=== PATIENT | female | born 1970 | race Caucasian/White ===

== ENCOUNTER 2019-03-22 12:49 | Emergency (ER) | payer OTHER ==
--- NOTE | 2019-03-22 12:52 | PDOC ---
History of Present Illness - General Stated Complaint: SYNCOPY Time Seen by Provider: 03/22/19 12:51 - History of Present Illness Initial Comments: 03/22/19 15:44 48F with pmh of HTN and Graves diseases presents to the ed with episode of dizziness and tremulousness while walking from her car to her kitchen today. She describes the dizziness as lightheadedness. Denies chest pain, sob or palpitation. Was recently diagnosed with Graves disease by thyroid intake. Was supposed to get scheduled for thyroid irradiation procedure but is unsure why that hasn't happened yet. Daughter reports a significant weight loss over the past month. Is currently on metoprolol and losartan. 03/22/19 15:49 Past History - Past Medical History Allergies/Adverse Reactions: Allergies Allergy/AdvReac Type Severity Reaction Status Date / Time No Known Drug Allergies Allergy Verified 12/17/14 09:52 Home Medications: Ambulatory Orders Losartan Potassium 50 mg PO DAILY 03/22/19 Metoprolol Succinate [Toprol Xl] 25 mg PO DAILY 03/22/19 Anemia: No Asthma: No Cancer: No Cardiac Disorders: No CVA: No COPD: No CHF: No Dementia: No Diabetes: No GI Disorders: No Disorders: No HTN: Yes Hypercholesterolemia: No Liver Disease: No Seizures: No Thyroid Disease: No - Surgical History Abdominal Surgery: No Appendectomy: No Cardiac Surgery: No Cholecystectomy: No Lung Surgery: No Neurologic Surgery: No Orthopedic Surgery: No - Suicide/Smoking/Psychosocial Hx Smoking History: Never smoked Have you smoked in the past 12 months: No Hx Alcohol Use: No Drug/Substance Use Hx: No Substance Use Type: None Hx Substance Use Treatment: No Review of Systems - Review of Systems Able to Perform ROS?: Yes Is the patient limited [place] African proficient: No Constitutional: No: Symptoms Reported HEENTM: No: Symptoms Reported Respiratory: No: Symptoms reported Cardiac (ROS): No: Symptoms Reported ABD/GI: No: Symptoms Reported : No: Symptoms Reported Neurological: Yes: See HPI Endocrine: Yes: See HPI, Unexplained Weight Loss All Other Systems: Reviewed and Negative ED Treatment Course - LABORATORY CBC & Chemistry Diagram: 03/22/19 14:08 03/22/19 14:08 Medical Decision Making - Medical Decision Making 03/22/19 15:49 This is likely untreated hyperthyroidism symptoms vs dehydration vs hypoglycemia vs cardiac arrhythmia EKG within normal limit, patient is tachycardic Low TSH, t3 t4 pending Spoke to Dr. Medina who will see the patient on Sunday in his office and who will order methimazole and propanolol for her at the pharmacy ,. Dr. Medina came over to see the patient himself. Ok to dc. *DC/Admit/Observation/Transfer Diagnosis at time of Disposition: Hyperthyroidism - Discharge Dispostion Disposition: HOME Condition at time of disposition: Improved Decision to Admit order: No - Referrals - Patient Instructions Printed Discharge Instructions: DI for Hyperthyroidism, DI for Graves Disease Additional Instructions: Follow up with Dr. Medina on Sunday and pickling solution maker the medication from the pharmacy. Come back to the emergency department for any new worsening or concerning symptoms Print Language: VIETNAMESE - Post Discharge Activity
[2019-03-22 13:13] VITALS: TEMP 98.4; BMI 25.4
[2019-03-22] MEDS ORDERED: SODIUM CHLORIDE 1,000 ML IV STA (13:50)
--- NOTE | 2019-03-22 14:31 | PDOC ---
Attending Attestation - Resident Resident Name: HastingsBuzz - ED Attending Attestation I have performed the following: I have examined & evaluated the patient, The case was reviewed & discussed with the resident, I agree w/resident's findings & plan, Exceptions are as noted - HPI HPI: 03/22/19 14:26 48 yo F wtih h/o recently diagnosed hyperthyroid noted initially with abnormal TSH in 01/14, who was found to have increased uptake on nuclear thyroid test 2018. here today c/o palpitations, racing heart beat, and feeling dizzy. pt denfrancy n/v no f/c states she was supposed to start iodine treatment but have had a difficult time setting up treatment. every time they call center they get disconnected. no other complaints - Physicial Exam PE: 03/22/19 14:30 awake alert lungs clear bilaterally heart rrr no mrg abd soft nt nd. ext wwp no edema. no calf tenderness. nuero alert oriented x 3. - Medical Decision Making 03/22/19 14:28 48 yo F wtih h/o recently diagnosed hyperthyroid noted initially with abnormal TSH in 01/14, who was found to have increased uptake on nuclear thyroid test 2018. here today c/o palpitations, racing heart beat, and feeling dizzy. pt denfrancy n/v no f/c states she was supposed to start iodine treatment but have had a difficult time setting up treatment. every time they call center they get disconnected. no other complaints. on exam pt with noted tachycardia. otherwise unremarkable. exam. plan will send TSH basic labs. r/o other causes of tachycardia such as electrolyte abnoramlity dehydration anemia, . plan to d/w dr schaeffer. dr zuniga. Heart Score/ECG Review #1 General ECG Interpretation: Sinus Rhythm, Normal Intervals, No acute ischemic changes Compared to previous ECG there are: Other (103 tachycardia sinus)
[2019-03-22 15:00] LABS: BASO % 0.2 % (0-2.0); EOS % 0.3 % (0-4.5); HEMATOCRIT 37.8 % (32.4-45.2); HEMOGLOBIN 12.7 GM/dL (10.7-15.3); LYMPH % 26.9 % (8-40); MCH 28.1 pg (25.7-33.7); MCHC 33.6 g/dl (32.0-36.0); MEAN CELL VOLUME 83.6 fl (80-96); MEAN PLT VOLUME 9.1 fl (7.5-11.1); MONO % 7.2 % (3.8-10.2); NEUT % 65.4 % (42.8-82.8); PLATELET COUNT 248 K/MM3 (134-434); RBC 4.52 M/mm3 (3.60-5.2); RDW 13.3 % (11.6-15.6); WHITE BLOOD COUNT 4.7 K/mm3 (4.0-10.0)
--- NOTE | 2019-03-22 15:00 | EKG ---
Test Reason : Blood Pressure : / mmHG Vent. Rate : 103 BPM Atrial Rate : 103 BPM P-R Int : 150 ms QRS Dur : 084 ms QT Int : 340 ms P-R-T Axes : 053 027 041 degrees QTc Int : 445 ms POOR DATA QUALITY, INTERPRETATION MAY BE ADVERSELY AFFECTED SINUS TACHYCARDIA OTHERWISE NORMAL ECG NO PREVIOUS ECGS AVAILABLE Confirmed by KENDAL PLAZA MD ([id number]) on 03/22/2019 3:00:24 PM Referred By: Confirmed By:KENDAL PLAZA MD
[2019-03-22 15:11] LABS: URINE APPEARANCE CLEAR; URINE BILIRUBIN NEGATIVE (NEGATIVE); URINE COLOR YELLOW; URINE GLUCOSE (UA) NEGATIVE (NEGATIVE); URINE KETONE NEGATIVE (NEGATIVE); URINE LEUK ESTERASE NEGATIVE (NEGATIVE); URINE NITRITE NEGATIVE (NEGATIVE); URINE PROTEIN NEGATIVE (NEGATIVE); URINE UROBILINOGEN 0.2 mg/dL (0.2-1.0)
[2019-03-22 15:12] LABS: ALBUMIN 3.8 g/dl (3.4-5.0); ALK PHOS 127 U/L (45-117); ANION GAP 5 MMOL/L (8-16); BILIRUBIN,TOTAL 0.4 mg/dL (0.2-1); BLOOD UREA NITROGEN 9 mg/dL (7-18); CHLORIDE 109 mmol/L (98-107); CO2 28 mmol/L (21-32); CREATININE 0.3 mg/dL (0.55-1.3); GLUCOSE,RANDOM 93 mg/dL (74-106); POTASSIUM 4.1 mmol/L (3.5-5.1); SGOT/AST 15 U/L (15-37); SGPT/ALT 29 U/L (13-61); SODIUM 141 mmol/L (136-145); TOT PROT 7.6 g/dl (6.4-8.2)
--- NOTE | 2019-03-22 16:03 | CONSULT ---
Consult Consult Specialty:: endocrine Referred by:: dr.sayegh mathew Reason for Consultation:: hyperthyroidism - History of Present Illness Chief Complaint: palpitations History of Present Illness: 48 yo F wtih h/o recently diagnosed hyperthyroid TSH in 01/14, who was treated with beta marc and recent i123 scan done showed uptatke 76%,awaiting i131 therapy. has had difficulty making apt with nuclear medicine dept.today woke up anxious,restless and palpitation,no cp no cough fever or chills - Past Medical History ...LMP: 02/12/14 - Alcohol/Substance Use Hx Alcohol Use: No - Smoking History Smoking history: Never smoked Have you smoked in the past 12 months: No Home Medications - Allergies Allergies/Adverse Reactions: Allergies Allergy/AdvReac Type Severity Reaction Status Date / Time No Known Drug Allergies Allergy Verified 12/17/14 09:52 - Home Medications Home Medications: Ambulatory Orders Losartan Potassium 50 mg PO DAILY 03/22/19 Metoprolol Succinate [Toprol Xl] 25 mg PO DAILY 03/22/19 Review of Systems - Review of Systems Constitutional: reports: Unintentional Wgt. Loss Eyes: reports: No Symptoms HENT: reports: No Symptoms Neck: reports: No Symptoms Cardiovascular: reports: Palpitations Respiratory: reports: No Symptoms Gastrointestinal: reports: No Symptoms Genitourinary: reports: No Symptoms Breasts: reports: No Symptoms Reported Musculoskeletal: reports: Muscle Weakness Endocrine: reports: Unexplained Weight Loss Physical Exam Vital Signs: Vital Signs Temperature 98.4 F 03/22/19 12:49 Pulse Rate 106 H 03/22/19 12:49 Respiratory Rate 18 03/22/19 12:49 Blood Pressure 143/84 03/22/19 12:49 O2 Sat by Pulse Oximetry (%) 100 03/22/19 12:49 Constitutional: Yes: Anxious Eyes: Yes: EOM Intact HENT: Yes: Normocephalic Neck: Yes: WNL Cardiovascular: Yes: Tachycardia Respiratory: Yes: WNL Gastrointestinal: Yes: WNL ...Rectal Exam: Yes: WNL Renal/: Yes: WNL Breast(s): Yes: WNL Musculoskeletal: Yes: WNL Extremities: Yes: WNL Edema: No Neurological: Yes: Alert, Oriented, Tremors ...Motor Strength: WNL Psychiatric: Yes: Alert, Oriented Labs: CBC, BMP 03/22/19 14:08 03/22/19 14:08 Problem List - Problems (1) Hyperthyroidism Code(s): E05.90 - THYROTOXICOSIS, UNSP WITHOUT THYROTOXIC CRISIS OR STORM Assessment/Plan Current Active Problems Hyperthyroidism (Acute) Abnormal Lab Results 03/22/19 03/22/19 14:08 15:00 Chloride 109 H Anion Gap 5 L Creatinine 0.3 L Alkaline Phosphatase 127 H TSH 0.01 L Ur Specific [place] 1.006 L plan: inderal 20mg tid methimazole 10mg bid apt sunday for follow up close to apt for i131 family and pt aware seen urgently
[2019-03-22 16:38] VITALS: BP 137/76; PULSE 101
== END 2019-03-22 16:45 | disposition home or self-care (01) ==
LOC: JER 12:49
PROC: 3E0337Z Introduction of Electrolytic and Water Balance Substance into Peripheral Vein, Percutaneous Approach (ICD-10-PCS; principal; 2019-03-22)
DX: E05.90 Thyrotoxicosis, unspecified without thyrotoxic crisis or storm (principal); I10 Essential (primary) hypertension
CPT/HCPCS: 36415; 80053; 81003; 84436; 84439; 84443; 84480; 85025; 87086; 93005; 93010; 96360; 99282-25; J7030

== ENCOUNTER 2019-03-31 11:34 | Emergency (ER) | payer OTHER ==
[2019-03-31 11:40] VITALS: BP 161/71; PULSE 77; TEMP 98.2; BMI 25.1
--- NOTE | 2019-03-31 11:55 | PDOC ---
History of Present Illness - General Chief Complaint: Syncope/Near Syncope Stated Complaint: LIGHTHEADEAD Time Seen by Provider: 03/31/19 11:54 - History of Present Illness Initial Comments: 03/31/19 12:31 The patient is a 48 year old female with a history of HTN and recently diagnosed Hyperthyroidism who presents for evaluation of lightheadedness. The patient is accompanied by family who assist in providing the history. They report a several day history of persistent lightheadedness and dizziness with associated nausea, palpitations, and numbness/tingling in the extremities worse with walking prompting the patient's presentation to the ED for further evaluation. They note that the patient is scheduled for iodine ablation of the thyroid tomorrow, but noted that the patient was hypertensive today and yesterday to 170s systolic. They otherwise deny fevers, chills, SOB, chest pain , vomiting, abdominal pain, or changes with urination or bowel movements. Past History - Past Medical History Allergies/Adverse Reactions: Allergies Allergy/AdvReac Type Severity Reaction Status Date / Time No Known Drug Allergies Allergy Verified 03/31/19 11:35 Home Medications: Ambulatory Orders Losartan Potassium 50 mg PO DAILY 03/22/19 Metoprolol Succinate [Toprol Xl] 25 mg PO DAILY 03/22/19 Anemia: No Asthma: No Cancer: No Cardiac Disorders: No CVA: No COPD: No CHF: No Dementia: No Diabetes: No GI Disorders: No Disorders: No HTN: Yes Hypercholesterolemia: No Liver Disease: No Seizures: No Thyroid Disease: No - Surgical History Abdominal Surgery: No Appendectomy: No Cardiac Surgery: No Cholecystectomy: No Lung Surgery: No Neurologic Surgery: No Orthopedic Surgery: No - Immunization History Immunization Up to Date: Yes - Suicide/Smoking/Psychosocial Hx Smoking History: Never smoked Have you smoked in the past 12 months: No Information on smoking cessation initiated: No Hx Alcohol Use: No Drug/Substance Use Hx: No Substance Use Type: None Hx Substance Use Treatment: No Review of Systems - Review of Systems Comments:: 03/31/19 12:34 Constitutional: No fevers, chills, fatigue, malaise HEENT: No Rhinorrhea, nasal congestion, visual changes Cardiovascular: Palpitations, Lightheadedness. No chest pain, syncope, Respiratory: No Cough, SOB, Hemoptysis, Gastrointestinal: Nausea, No Abdominal pain, Vomiting, Constipation, Diarrhea, Melena Genitourinary: No Dysuria, Frequency, Urgency, Hesitancy, Hematuria, Flank pain Musculoskeletal: No Myalgia, arthralgia Skin: No rashes, itching, bruising, pallor Neurologic: Numbness, tingling. No Headache, Weakness, Psychiatric: No Hallucinations. No SI or HI *Physical Exam - Vital Signs Last Vital Signs Temp Pulse Resp BP Pulse Ox 98.2 F 77 17 161/71 99 03/31/19 11:36 03/31/19 11:36 03/31/19 11:36 03/31/19 11:36 03/31/19 11:36 - Physical Exam Comments: 03/31/19 12:35 General Appearance: Nourished. No Apparent Distress HEENT: EOMI, ILIA. No Pharyngeal Erythema, Tonsillar Exudate, Tonsillar Erythema Neck: No Cervical Lymphadenopathy Respiratory/Chest: Lungs Clear, Normal Breath Sounds. No Crackles, Rales, Rhonchi, Wheezing Cardiovascular: Regular Rhythm, Regular Rate. No Murmur, Gallops, Rubs Gastrointestinal/Abdominal: Normal Bowel Sounds, Soft. No Guarding, Rebound, Tenderness Musculoskeletal: No CVA Tenderness Extremity: Normal Capillary Refill Integumentary: Normal Color, Dry, Warm Neurologic: care coordination manager II-XII NML intact, Fully Oriented, Alert, Normal Mood/Affect, Normal Response, Motor Strength 5/5. Heart Score/ECG Review #1 ECG reviewed & interpreted by me at: 12:57 General ECG Interpretation: Sinus Rhythm, Normal Rate, Normal Intervals, No acute ischemic changes ED Treatment Course - LABORATORY CBC & Chemistry Diagram: 03/31/19 12:15 03/31/19 12:15 Medical Decision Making - Medical Decision Making 03/31/19 12:36 The patient is a 48 year old female with a history of HTN and recently diagnosed Hyperthyroidism who presents for evaluation of lightheadedness. Differential includes but is not limited to: Hyperthyroidism, Dehydration, ACS, Infectious, Metabolic Derangement. Given the patient's history and physical exam, it is likely the patient's symptoms are due to hyperthyroidism. However, we will obtain a cbc, cmp, troponin, tsh, T4, ekg, chest plain film to evaluate further. The patient notes that she takes propranolol at home and took her home medications today. We will continue to monitor and reassess while here in the ED. 03/31/19 13:57 CBC , cmp are unremarkable. TSH is low at 0.01. T4 is elevated to 2. Chest plain film is unremarkable. The patient's symptoms are likely related to her hyperthyroidism for which she has follow up for radioactive iodine ablation scheduled tomorrow. The patient was reassessed and appears clinically well on exam. We are comfortable discharging the patient home in stable condition. Patient and family made aware of impression and plan, return precautions discussed including but not limited to worsening pain or symptoms, fevers, or signs of infection, chest pain, respiratory distress, inability to tolerate oral intake, dehydration, syncope, or neurologic changes. The patient is to follow up with PMD and specialist as recommended within 1 week, follow up information provided and the patient will call for an appointment. The patient is to take medications as instructed for duration of time and continue with supportive care, avoid triggers and precipitants. Patient is safe for outpatient follow-up. *DC/Admit/Observation/Transfer Diagnosis at time of Disposition: Hyperthyroidism - Discharge Dispostion Disposition: HOME Condition at time of disposition: Stable Decision to Admit order: No - Referrals Referrals: Steven Rendon MD [Primary Care Provider] - - Patient Instructions Printed Discharge Instructions: DI for Hyperthyroidism Additional Instructions: 1) Please follow-up with your primary care doctor in the next 2-3 days. Please call tomorrow to schedule a follow up appointment. If you cannot follow up with your doctor within 1 week please return to the Emergency Department for any urgent issues. 2) Your laboratory / imaging results were normal here in the ER. You are to follow up tomorrow for your procedure. 3) If you have any worsening of symptoms or any other concerns please return to the ER immediately. Return if worsening symptoms including fevers, headache, vomiting, visual or hearing disturbances, abdominal pain, chest pain, shortness of breath, syncope, dehydration, inability to take things by mouth/vomiting, altered mental status, or worsening concerning symptoms. 4) Please continue taking your home medications as directed. - Post Discharge Activity
[2019-03-31] MEDS ORDERED: ONDANSETRON 4 MG/2 ML VIAL IVPUSH ONE (12:20)
[2019-03-31] MEDS ORDERED: SODIUM CHLORIDE 1,000 ML IV STA (12:20)
[2019-03-31] MEDS ORDERED: ONDANSETRON 4 MG/2 ML VIAL ONE (12:32)
[2019-03-31 13:08] LABS: BASO % 0.4 % (0-2.0); HEMATOCRIT 35.9 % (32.4-45.2); LYMPH % 41.6 % (8-40); MCH 27.6 pg (25.7-33.7); MCHC 33.4 g/dl (32.0-36.0); MEAN CELL VOLUME 82.5 fl (80-96); MEAN PLT VOLUME 8.9 fl (7.5-11.1); MONO % 6.7 % (3.8-10.2); NEUT % 50.3 % (42.8-82.8); PLATELET COUNT 295 K/MM3 (134-434); RBC 4.35 M/mm3 (3.60-5.2); RDW 13.3 % (11.6-15.6); WHITE BLOOD COUNT 3.7 K/mm3 (4.0-10.0)
[2019-03-31 13:24] LABS: ALBUMIN 3.4 g/dl (3.4-5.0); ALK PHOS 125 U/L (45-117); ANION GAP 6 MMOL/L (8-16); BILIRUBIN,TOTAL 0.2 mg/dL (0.2-1); BLOOD UREA NITROGEN 11 mg/dL (7-18); CALCIUM 9.3 mg/dL (8.5-10.1); CHLORIDE 109 mmol/L (98-107); CO2 26 mmol/L (21-32); CREATININE 0.4 mg/dL (0.55-1.3); GLUCOSE,RANDOM 117 mg/dL (74-106); SGOT/AST 18 U/L (15-37); SGPT/ALT 28 U/L (13-61); SODIUM 141 mmol/L (136-145)
--- NOTE | 2019-03-31 14:06 | PDOC ---
Documentation entered by Jde Escobar SCRIBE, acting as scribe for Yuniel Caldwell MD. Yuniel Caldwell MD: This documentation has been prepared by the Shawn allen Matthew, SCRIBE, under my direction and personally reviewed by me in its entirety. I confirm that the documentation accurately reflects all work, treatment, procedures, and medical decision making performed by me. Attending Attestation - Resident Resident Name: Alejandro Goode - ED Attending Attestation I have performed the following: I have examined & evaluated the patient, The case was reviewed & discussed with the resident, I agree w/resident's findings & plan, Exceptions are as noted - HPI HPI: 03/31/19 13:53 Patient is a 48 year old female with a significant past medical history of HTN and Hypothyroidism, who presents to the ED with complaints of lightheadedness that began earlier this week. Patient reports experiencing several day hx of lightheadedness as well as associated dizziness, nausea, numbness and tingling in extremities and intermittent chest palpitations. She reports symptoms are increased with walking and not while at rest, prompting her to come into the ED for further evaluations. . Denies Chest pain, sob. Denies vomiting. Denies fevers, chills. Denies contact with sick individuals, out of state travelling. Denies diarrhea, constipation. Denies dysuria, hematuria. Denies any other symptoms. Allergies: NKDA Social history: No smoking. No alcohol. No illicit drugs. Surgical history: None PMD: Dr. Steven zuniga - Physicial Exam PE: 03/31/19 13:53 Vitals: Triage Vital signs reviewed General Appearance: no acute distress, well nourished well developed Head: Atraumatic Neck: Supple; No Nuchal rigidity Chest Wall: Nontender Cardiac: Regular rate and rhythm, no murmurs, no rubs, no gallops Lungs: Clear to auscultation bilateral, good air movement bilaterally Abdomen: Soft, non distended, normal bowel sounds, non tender to palpation Genitourinary: Rectal: Exam deferred Extremities: Full range of motion to all extremities, no cyanosis, clubbing, or edema Skin: Warm and dry, no rashes or lesions, no rash, no petechiae Neuro: AOX3; Cranial Nerves 2-12 grossly intact, Strength intact to all extremities, Sensation intact to all extremities, gait normal Psych: Normal mood, normal affect 03/31/19 15:34 - Medical Decision Making 03/31/19 15:34 Positional lightheadedness nonischemic EKG EKG demonstrates normal sinus rhythm at [address] elevations or T-wave inversions Laboratory analysis within normal limits Findings, need for follow-up and strict return instructions discussed with patient.
--- NOTE | 2019-03-31 15:09 | EKG ---
Test Reason : Blood Pressure : / mmHG Vent. Rate : 070 BPM Atrial Rate : 070 BPM P-R Int : 146 ms QRS Dur : 082 ms QT Int : 406 ms P-R-T Axes : 047 031 059 degrees QTc Int : 438 ms NORMAL SINUS RHYTHM NORMAL ECG WHEN COMPARED WITH ECG OF 22-MAR-2019 12:54, NO SIGNIFICANT CHANGE WAS FOUND Confirmed by IZZY QUINN MD ([id number]) on 03/31/2019 3:08:48 PM Referred By: Confirmed By:IZZY QUINN MD
== END 2019-03-31 14:55 | disposition home or self-care (01) ==
LOC: JER 11:34
PROC: 3E033GC Introduction of Other Therapeutic Substance into Peripheral Vein, Percutaneous Approach (ICD-10-PCS; principal; 2019-03-31)
DX: E05.90 Thyrotoxicosis, unspecified without thyrotoxic crisis or storm (principal); I10 Essential (primary) hypertension
CPT/HCPCS: 36415; 71045-TC-FY; 80053; 82550; 84439; 84443; 84481; 84484; 85025; 93005; 93010; 96374; 99283-25; J7030

== ENCOUNTER 2019-04-03 13:55 | Emergency (ER) | payer OTHER ==
[2019-04-03 14:05] VITALS: TEMP 98.1; BMI 25.1
--- NOTE | 2019-04-03 14:08 | PDOC ---
Rapid Medical Evaluation Chief Complaint: Lightheaded Time Seen by Provider: 04/03/19 14:03 Medical Evaluation: Allergies Allergy/AdvReac Type Severity Reaction Status Date / Time No Known Drug Allergies Allergy Verified 03/31/19 11:35 04/03/19 14:04 I have performed a brief in-person evaluation of this patient. The patient presents with a chief complaint of: h/o hyperthyroidism and HTN undergoing radiation therapy for 3 days now present with complains of MURPHY, nausea dizziness and elevated blood pressure with visual floaters today Pertinent physical exam findings: A&o X 3 in NAD. HEART : RRR. lungs: CTAB I have ordered the following: CBC, CMP, t3,t4, TSH. The patient will proceed to the ED for further evaluation. Discharge Disposition - Diagnosis Hyperthyroidism, Dizziness HTN (hypertension) Qualifiers: Hypertension type: secondary to endocrine disorders Qualified Code(s): I15.2 - Hypertension secondary to endocrine disorders - Discharge Dispostion Condition at time of disposition: Stable - Referrals - Patient Instructions - Post Discharge Activity
[2019-04-03] MEDS ORDERED: LOSARTAN POTASSIUM 50 MG TABLET (FP) PO ONE (14:39)
[2019-04-03] MEDS ORDERED: LOSARTAN POTASSIUM 50 MG TABLET (FP) ONE (15:25)
[2019-04-03] MEDS ORDERED: IBUPROFEN 600 MG TABLET (FP) PO ONE (15:25)
[2019-04-03 15:36] LABS: BASO % 0.3 % (0-2.0); EOS % 1.2 % (0-4.5); HEMATOCRIT 38.9 % (32.4-45.2); HEMOGLOBIN 12.7 GM/dL (10.7-15.3); LYMPH % 30.6 % (8-40); MCH 27.3 pg (25.7-33.7); MCHC 32.6 g/dl (32.0-36.0); MEAN CELL VOLUME 83.8 fl (80-96); MEAN PLT VOLUME 8.6 fl (7.5-11.1); MONO % 6.4 % (3.8-10.2); NEUT % 61.5 % (42.8-82.8); PLATELET COUNT 305 K/MM3 (134-434); RBC 4.64 M/mm3 (3.60-5.2); RDW 13.3 % (11.6-15.6); WHITE BLOOD COUNT 5.4 K/mm3 (4.0-10.0)
[2019-04-03 16:19] LABS: ALBUMIN 3.8 g/dl (3.4-5.0); BILIRUBIN,TOTAL 0.3 mg/dL (0.2-1); CALCIUM 9.7 mg/dL (8.5-10.1); CREATININE 0.4 mg/dL (0.55-1.3); TOT PROT 7.3 g/dl (6.4-8.2)
--- NOTE | 2019-04-03 16:45 | PDOC ---
Documentation entered by April Weems SCRIBE, acting as scribe for Bill Pace MD. Bill Pace MD: This documentation has been prepared by the Faustina allen Amanda, SCRIBE, under my direction and personally reviewed by me in its entirety. I confirm that the documentation accurately reflects all work, treatment, procedures, and medical decision making performed by me. Attending Attestation - Resident Resident Name: Chris España - ED Attending Attestation I have performed the following: I have examined & evaluated the patient, The case was reviewed & discussed with the resident, I agree w/resident's findings & plan - HPI HPI: 04/03/19 16:35 The patient is a 48 year old female with a significant past medical history of HTN and Hyperthyroidism, who presents to the ED with complaints of headache, light headedness, blurred vision, and flashing lights this morning. Two days s/ p thyroid ablation with Dr. Rodrigues. She states she took her BP during the episode which was 200s "over something". Of note, pt losartan was d/c'd few weeks ago. She denies Chest pain, SOB, n/v/d. She denies fevers, chills. She denies dysuria , hematuria. Denies any other symptoms. Allergies: NKDA Social history: No smoking. No alcohol. No illicit drugs. Surgical history: None PMD: Dr. Steven zuniga Endo: Dr. Medina - Physicial Exam PE: 04/03/19 16:38 alert seated in wheelchair, nad speaking full sentences, coherent perrl, eomi neck supple, no audible carotid bruit s1s2 rrr, lungs clear, abd benign NEURO: Mental status: The patient is alert and oriented x3. Cranial nerves: Cranial nerves II through XII are intact Motor: The upper extremities are 5 over 5 in all muscle groups. The lower extremities are 5 over 5 in all muscle groups. No pronator drift. Sensation: Sensation is intact to light touch throughout. Cerebellar: [id number] is normal in both upper extremities. Heel-knee- gupta is normal in both lower extremities. Reflexes: 2+ and symmetric in the upper and lower extremities. Gait: Normal. Heel and toe walking are normal. Tandem gait is normal. - Medical Decision Making 04/03/19 16:44 48y/o F HTN and hyperthyroid recent change in BP meds with murphy/blurry vision in setting of elevated BP at home. neuro intact here but BP persistently elevated on arrival. check labs ct head likely htn urgency, given losartan with improved BP tylenol for MURPHY thyroid levels as noted - will discuss dispo with Dr. Medina 04/03/19 17:03 bp 120/69, CT without acute pathology call placed to Dr. Medina, will dispo accordingly Heart Score/ECG Review #1 ECG reviewed & interpreted by me at: 15:27 General ECG Interpretation: Sinus Rhythm, Normal Rate (77), Normal Intervals ( qtc 427), No acute ischemic changes
[2019-04-03 16:47] VITALS: BP 120/69; PULSE 71
--- NOTE | 2019-04-03 16:59 | PDOC ---
History of Present Illness - General Chief Complaint: Lightheaded Stated Complaint: DIZZNESS/ HYPERTENSION Time Seen by Provider: 04/03/19 14:03 History Source: Patient, Family (Daughter present at bedside.), Old Records Exam Limitations: No Limitations - History of Present Illness Initial Comments: HPI: 48 y/o female presenting to [facility] ER complaining of headache, black spots in vision, and elevated blood pressure (over 200 systolic at home). Black spots are present with eyes open and closed. Pt is s/p radioactive thyroid administration two days ago for Graves Disease. Stopped taking Losartan three weeks ago but has continued Propranolol. Was instructed to restart Methimazole tomorrow. Denies chest pain, SOB, syncope, numbness or weakness. PCP: Dr. Julieta Ambrocio Hx: - HTN - Graves Disease s/p radioactive iodine therapy (March 2019) Review of Systems: In addition to that documented in the HPI above, the additional ROS was obtained : Constitutional: Denies fevers or chills Head: Per HPI ENMT: Denies sore throat CV: Denies chest pain Resp: Denies SOB GI: Endorses nausea without vomiting or diarrhea : Denies painful urination or hematuria MSK: Denies recent trauma Skin: Denies new rashes Neuro: Denies new numbness or tingling or weakness Endocrine: Denies polyuria Heme: Denies bleeding or bruising Physical Examination: Constitutional: Well-developed, well-nourished adult in no acute distress or obvious discomfort. Found sitting upright on hallway chair. Alert and oriented x4. Answered all questions appropriately and completely. Speech was non-labored , non-pressured. Head: Normocephalic. No obvious external signs of trauma. Eyes: Pupils 3mm and PERRL bilaterally. EOMI. Sclerae white. Conjunctiva moist and not injected. Ears: Hearing grossly intact. Nose: No nasal discharge. Throat: Oral cavity and pharynx normal. No inflammation, swelling, exudate, or lesions. Teeth and gingiva in good general condition. Uvula midline. Neck: Supple, trachea is midline. Cardiovascular / Chest: Regular rate and regular rhythm. No murmur, rubs, clicks, or gallops. Peripheral pulses: radial pulses full. No anterior chest wall tenderness. Respiratory: Breathing unlabored. Equal chest rise and fall. Clear to auscultation bilaterally. No stridor, no wheezing, no rhonchi. Gastrointestinal: abdomen is soft, non-tender, non-distended. Neuro: Alert and oriented. Moving all four extremities spontaneously.Upper and lower extremities: proximal and distal strength 5/5. Adon strength 5/5 - equal and symmetric. Plantar flexion and dorsiflexion 5/5. No nuchal rigidity. Intact rapid alternating movements and heel to gupta. Skin: Warm, dry, and intact. No bruising, rashes, or other lesions. Psych: Affect: appropriate. Mood: normal. MDM: *Reviewed vital signs, nursing notes, and prior visit documentation (if available). 48 y/o female with h/o of Graves Disease s/p radioactive iodine two days ago. Recently stopped one antihypertensive agent. Presenting with headache, black spots in vision, and elevated BP. Suspect secondary to hyperthyroidism and elevated BP. EKG unremarkable for ischemic changes or arrhythmias. CBC unremarkable for anemia or leukocytosis. No significant electrolyte derangement. BP trended downward appropriately after receiving Losartan at home dose. Headache resolved after receiving Tylenol. Obtained Head CT to evaluate for intracranial lesion given the hypertension, visual changes, and nausea. No acute intracranial abnormalities were noted. Discussed low TSH and elevated T4 levels with Dr. Medina via telephone. Stated these levels take approx. 6 weeks to normalize. Requested the pt restart Methimazole and Losartan. Pt reassessed. States symptoms have resolved. Discussed imaging and laboratory results with pt. Answered all questions. Provided return precautions. Pt expressed verbal understanding and agreement with plan to discharge home with outpatient follow up. Provided copies of todays results. Past History - Past Medical History Allergies/Adverse Reactions: Allergies Allergy/AdvReac Type Severity Reaction Status Date / Time No Known Drug Allergies Allergy Verified 04/03/19 14:05 Home Medications: Ambulatory Orders Losartan Potassium 50 mg PO DAILY 03/22/19 Metoprolol Succinate [Toprol Xl] 25 mg PO DAILY 03/22/19 Anemia: No Asthma: No Cancer: No Cardiac Disorders: No CVA: No COPD: No CHF: No Dementia: No Diabetes: No GI Disorders: No Disorders: No HTN: Yes Hypercholesterolemia: No Liver Disease: No Seizures: No Thyroid Disease: Yes (HYPER) - Surgical History Abdominal Surgery: No Appendectomy: No Cardiac Surgery: No Cholecystectomy: No Lung Surgery: No Neurologic Surgery: No Orthopedic Surgery: No - Immunization History Immunization Up to Date: Yes - Suicide/Smoking/Psychosocial Hx Smoking History: Never smoked Have you smoked in the past 12 months: No Hx Alcohol Use: No Drug/Substance Use Hx: No Substance Use Type: None Hx Substance Use Treatment: No *Physical Exam - Vital Signs Last Vital Signs Temp Pulse Resp BP Pulse Ox 98.1 F 71 18 120/69 98 04/03/19 16:46 04/03/19 16:46 04/03/19 16:46 04/03/19 16:47 04/03/19 16:46 ED Treatment Course - LABORATORY CBC & Chemistry Diagram: 04/03/19 15:23 04/03/19 15:23 - ADDITIONAL ORDERS Additional order review: Laboratory Results 04/03/19 04/03/19 15:23 15:23 Sodium 139 Potassium 4.0 Chloride 108 H Carbon Dioxide 26 Anion Gap 5 L BUN 12 Creatinine 0.4 L Est GFR (CKD-EPI)AfAm 140.76 Est GFR (CKD-EPI)NonAf 121.45 Random Glucose 104 Calcium 9.7 Total Bilirubin 0.3 AST 12 L ALT 26 Alkaline Phosphatase 135 H Creatine Kinase 29 Troponin I < 0.02 Total Protein 7.3 Albumin 3.8 TSH 0.01 L Free T4 2.75 H 04/03/19 15:23 RBC 4.64 MCV 83.8 MCHC 32.6 RDW 13.3 MPV 8.6 Neutrophils % 61.5 D Lymphocytes % 30.6 D Monocytes % 6.4 Eosinophils % 1.2 Basophils % 0.3 - Medications Given in the ED: ED Medications Discontinued Medications Generic Name Dose Route Start Last Admin Trade Name Raghuq PRN Reason Stop Dose Admin Ibuprofen 650 mg 04/03/19 15:25 04/03/19 16:41 Motrin - PO 04/03/19 15:26 Not Given ONCE ONE Losartan Potassium 50 mg 04/03/19 14:39 04/03/19 15:27 Cozaar - PO 04/03/19 14:40 50 mg ONCE ONE Administration *DC/Admit/Observation/Transfer Diagnosis at time of Disposition: Hyperthyroidism, Dizziness HTN (hypertension) Qualifiers: Hypertension type: secondary to endocrine disorders Qualified Code(s): I15.2 - Hypertension secondary to endocrine disorders - Discharge Dispostion Disposition: HOME Condition at time of disposition: Stable Decision to Admit order: No - Referrals Referrals: Steven Rendon MD [Primary Care Provider] - - Patient Instructions Printed Discharge Instructions: DI for High Blood Pressure Additional Instructions: Hoy te vieron por un dolor de anne, mareos y presin arterial tomas. Pelayo TC de la anne era normal. Pelayo anlisis de osvaldo indic el problema conocido con pelayo tiroides. El Dr. Flynn desea que comience a michelle el metimazol hoy. [place] 1x 10mg esta noche, luego 2x 10mg maana por la maana y 1x 10mg maana por la noche. Vuelva a comenzar a michelle pelayo Losartan segn lo prescrito por pelayo mdico maana por la maana. Maegan un seguimiento con pelayo mdico de atencin primaria en los prximos 3 a 4 renee. Tendr que llamar para hacer omar milagro. El nmero est incluido en beto paquete. Omar copia de los resultados de hoy se adjunta a beto paquete. Llvelo a la milagro para que pelayo mdico pueda revisarlos. Vaya al departamento de emergencias ms cercano si pelayo afeccin empeora o si mary que necesita omar evaluacin de emergencia adicional. You were seen today for a headache, dizziness, and high blood pressure. Your head CT was normal. Your blood work indicated the known problem with your Thyroid. Dr. Flynn would like you to start taking the Methimazole today. Take 1x 10mg pill tonight, then 2x 10mg pill tomorrow morning and 1x 10mg pill tomorrow night. Restart taking your Losartan as prescribed by your doctor tomorrow morning. Follow up with your primary care doctor within the next 3-4 days. You will need to call to make an appointment. The number is included in this packet. A copy of todays results are attached to this packet. Take it to the appointment so your doctor can review them. Go to the nearest emergency department if your condition worsens or you feel like you need additional emergency evaluation. Print Language: TELUGU - Post Discharge Activity Forms/Work/School Notes: Back to Work, Parent(s) Back to Work Note
--- NOTE | 2019-04-04 15:01 | EKG ---
Test Reason : Blood Pressure : / mmHG Vent. Rate : 077 BPM Atrial Rate : 077 BPM P-R Int : 136 ms QRS Dur : 072 ms QT Int : 378 ms P-R-T Axes : 064 022 047 degrees QTc Int : 427 ms NORMAL SINUS RHYTHM NORMAL ECG WHEN COMPARED WITH ECG OF 31-MAR-2019 12:34, NO SIGNIFICANT CHANGE WAS FOUND Confirmed by J CARLOS VEGAS MD ([id number]) on 04/04/2019 3:01:05 PM Referred By: Confirmed By:J CARLOS VEGAS MD
== END 2019-04-03 18:08 | disposition home or self-care (01) ==
LOC: JER 13:55
DX: I15.2 Hypertension secondary to endocrine disorders (principal); E05.90 Thyrotoxicosis, unspecified without thyrotoxic crisis or storm; R42 Dizziness and giddiness
CPT/HCPCS: 36415; 70450-TC; 71045-TC-FY; 80053; 82550; 84439; 84443; 84481; 84484; 85025; 93005; 93010; 99283-25

== ENCOUNTER 2019-04-10 20:39 | Emergency (ER) | payer OTHER ==
[2019-04-10 20:49] VITALS: TEMP 98.1; BMI 25.1
--- NOTE | 2019-04-10 20:56 | PDOC ---
History of Present Illness - General Chief Complaint: Nausea/Vomiting Stated Complaint: WEAKNESS Time Seen by Provider: 04/10/19 20:56 History Source: Patient Exam Limitations: No Limitations - History of Present Illness Initial Comments: 04/10/19 20:57 48 year old woman with a history of HTN and Graves disease s/p radioactive iodine therapy (April 01, 2019) who presents with diffuse abdominal pain that started this am after eating, rated 9/10 and has been waxing and waning since onset and associated with some nausea and headache. The patient also noted some bright red blood on her stool and has a history of hemorrhoids. The patient denies any diaphoresis, chest pain, shortness of breath, dysuria, hematuria, diarrhea, recent fever or recent travel. The patient is managed by Dr. Medina for her hyperthyroidism and is on a regimen of methimazole, losartan, propranolol Q6H, however the patient has been taking these medications Q5H due to feelings of palpitations and shortness of breath. Last methamizole dose at 1700, last propranolol 2000. She had an appointment with her PCP this AM who told her to continue to monitor her BP and come to the ED if elevated. This AM the bp was 160s systolic. PMHX: cholecystectomy, R oophorectomy 2/2 to tumor Past History - Past Medical History Allergies/Adverse Reactions: Allergies Allergy/AdvReac Type Severity Reaction Status Date / Time No Known Drug Allergies Allergy Verified 04/10/19 20:49 Home Medications: Ambulatory Orders Losartan Potassium 50 mg PO DAILY 03/22/19 Metoprolol Succinate [Toprol Xl] 25 mg PO DAILY 03/22/19 Anemia: No Asthma: No Cancer: No Cardiac Disorders: No CVA: No COPD: No CHF: No Dementia: No Diabetes: No GI Disorders: No Disorders: No HTN: Yes Hypercholesterolemia: No Liver Disease: No Seizures: No Thyroid Disease: Yes (HYPER) - Surgical History Abdominal Surgery: No Appendectomy: No Cardiac Surgery: No Cholecystectomy: No Lung Surgery: No Neurologic Surgery: No Orthopedic Surgery: No - Immunization History Immunization Up to Date: Yes - Suicide/Smoking/Psychosocial Hx Smoking History: Never smoked Have you smoked in the past 12 months: No Information on smoking cessation initiated: No Hx Alcohol Use: No Drug/Substance Use Hx: No Substance Use Type: None Hx Substance Use Treatment: No Review of Systems - Review of Systems Able to Perform ROS?: Yes Comments:: 04/10/19 21:27 GENERAL/CONSTITUTIONAL: No fever or chills. No weakness. HEAD, EYES, EARS, NOSE AND THROAT: No change in vision. No ear pain or discharge. No sore throat. CARDIOVASCULAR: No chest pain + occasional intermittent shortness of breath RESPIRATORY: No cough, wheezing, or hemoptysis. GASTROINTESTINAL: + nausea, No vomiting, diarrhea or constipation. GENITOURINARY: No dysuria, frequency, or change in urination. MUSCULOSKELETAL: No joint or muscle swelling or pain. No neck or back pain. SKIN: No rash NEUROLOGIC: + headache, No vertigo, loss of consciousness, or change in strength /sensation. ENDOCRINE: No increased thirst. No abnormal weight change HEMATOLOGIC/LYMPHATIC: No anemia, easy bleeding, or history of blood clots. ALLERGIC/IMMUNOLOGIC: No hives or skin allergy. Is the patient limited Wolof proficient: No *Physical Exam - Vital Signs Last Vital Signs Temp Pulse Resp BP Pulse Ox 98.1 F 83 20 156/84 98 04/10/19 20:39 04/10/19 20:39 04/10/19 20:39 04/10/19 20:39 04/10/19 20:39 - Physical Exam Comments: 04/10/19 21:38 GENERAL: Awake, alert, and fully oriented, in no acute distress HEAD: No signs of trauma, normocephalic, atraumatic EYES: EOMI, sclera anicteric, conjunctiva clear ENT: oropharynx clear without exudates. Moist mucosa NECK: Normal ROM, supple LUNGS: No distress, speaks full sentences, clear to auscultation bilaterally HEART: Regular rate and rhythm, normal S1 and S2, no murmurs, rubs or gallops, peripheral pulses normal and equal bilaterally. ABDOMEN: Soft, nontender, normoactive bowel sounds. No guarding, no rebound. No masses EXTREMITIES : Normal inspection, Normal range of motion, no edema. No clubbing or cyanosis. NEUROLOGICAL: Cranial nerves II through XII grossly intact. Normal speech, normal gait, no focal sensorimotor deficits SKIN: Warm, Dry, normal turgor, no rashes or lesions noted ED Treatment Course - LABORATORY CBC & Chemistry Diagram: 04/10/19 21:20 04/10/19 21:20 Medical Decision Making - Medical Decision Making 04/10/19 21:26 48 year old woman with a history of HTN and Graves disease s/p radioactive iodine therapy (April 01, 2019) who presents with diffuse abdominal pain that started this am after eating, rated 9/10 and has been waxing and waning since onset and associated with some nausea and headache. The patient also noted some bright red blood on her stool and has a history of hemorrhoids. The patient denies any diaphoresis, chest pain, shortness of breath, dysuria, hematuria, diarrhea, recent fever or recent travel. The patient is managed by Dr. Medina for her hyperthyroidism and is on a regimen of methimazole, losartan, propranolol Q6H, however the patient has been taking these medications Q5H due to feelings of palpitations and shortness of breath. Last methamizole dose at 1700, last propranolol 1999. ED Course: consider acs vs arrythmia vs electrolyte derangement vs hyperthyroidism unremarkable abdominal exam, less likely appendicitis less likely retained gallstone unliekly pancreatitis cbc, cmp, ekg, tsh, free t3, free t4, trop, ua ivf, reglan 04/10/19 22:47 EKG: normal sinus rhythm HR 75, no interval abnormalities, narrow QRS, ST and T wave segments and morphology normal. cbc, cmp, trop wnl pending tsh 04/10/19 23:47 TSH unchanged pending free T3 and T4 ua unremarkable *DC/Admit/Observation/Transfer Diagnosis at time of Disposition: Nausea, Abdominal pain - Discharge Dispostion Condition at time of disposition: Fair Decision to Admit order: No - Referrals Referrals: Steven Rendon MD [Primary Care Provider] - - Patient Instructions Printed Discharge Instructions: DI for Nausea -- Adult, DI for Graves Disease, DI for Abdominal Pain-Adult Additional Instructions: You were seen in the ED for complaints of abdominal pain. In the ED you were evaluated with labwork. Your results were largely unremarkable and you showed symptomatic improvement. There does not appear to be an acute need for immediate hospitalization. You are advised to follow up with your Primary Care Physician within 1 week. Continue to take all your thyroid medications as prescribed. Return to the ED immediately if you experience worsening abdominal pain, nausea , fever, chest pain, chest palpitations, shortness of breath or any changes in mental status. - Post Discharge Activity
[2019-04-10] MEDS ORDERED: SODIUM CHLORIDE 1,000 ML IV SCH (21:00)
--- NOTE | 2019-04-10 21:08 | PDOC ---
Documentation entered by [employer] SCRIBE, acting as scribe for Hamilton Etienne MD. Hamilton Etienne MD: This documentation has been prepared by the Calos allen Daisy, SCRIBE, under my direction and personally reviewed by me in its entirety. I confirm that the documentation accurately reflects all work, treatment, procedures, and medical decision making performed by me. Attending Attestation - Resident Resident Name: Patricia Parra - ED Attending Attestation I have performed the following: I have examined & evaluated the patient, The case was reviewed & discussed with the resident, I agree w/resident's findings & plan - HPI HPI: 04/10/19 21:40 The patient is a 48YOF with a PMH of HTN and Graves disease (follows with Dr. Medina) s/p radioactive iodine therapy (April 01, 2019) who presents to the ER for diffuse abdominal pain with nausea and generalized headache. She also noticed bright red blood covering her stool this morning. She is currently on methimazole, losartan, and propranolol Q6H, but has been taking these medications every 5 hours due to intermittent palpitations. Denies any cp, urinary symptoms, diarrhea or constipation. Allergies: NKDA Surgeries: cholecystectomy, R oophorectomy 2/2 to tumor - Physicial Exam PE: 04/11/19 00:08 Agree with exam as documented by resident - Medical Decision Making 04/11/19 00:08 48F on day 11 of radioactive iodide tx for Grave's disease. Here complaining of nausea vomiting, nbnb. a/w intermittent palpitation concurrent with treatment. Benign abdomen, acute surgical pathology unlikely Consider electrolyte imbalance, arrythmia, sequelae of Grave's tx F/u labs tx symptoms re-eval dispo per clinical course EKG nsr, non-ischemic Labs unremarkable Pt endorses resolution of cheif complaint symptoms DC with f/u return instructions given
[2019-04-10] MEDS ORDERED: METOCLOPRAMIDE HCL INJECTION 10 MG/2 ML VIAL IVPUSH ONE (21:20)
[2019-04-10] MEDS ORDERED: METOCLOPRAMIDE HCL INJECTION 10 MG/2 ML VIAL ONE (21:33)
[2019-04-10 21:34] LABS: BASO % 0.5 % (0-2.0); EOS % 2.7 % (0-4.5); HEMATOCRIT 37.5 % (32.4-45.2); HEMOGLOBIN 12.3 GM/dL (10.7-15.3); LYMPH % 25.7 % (8-40); MCH 27.4 pg (25.7-33.7); MCHC 32.8 g/dl (32.0-36.0); MEAN CELL VOLUME 83.4 fl (80-96); MEAN PLT VOLUME 8.8 fl (7.5-11.1); MONO % 8.9 % (3.8-10.2); NEUT % 62.2 % (42.8-82.8); PLATELET COUNT 262 K/MM3 (134-434); RBC 4.49 M/mm3 (3.60-5.2); RDW 13.4 % (11.6-15.6); WHITE BLOOD COUNT 4.1 K/mm3 (4.0-10.0)
[2019-04-10 22:15] LABS: ALBUMIN 3.5 g/dl (3.4-5.0); ALK PHOS 133 U/L (45-117); ANION GAP 6 MMOL/L (8-16); BILIRUBIN,TOTAL 0.2 mg/dL (0.2-1); BLOOD UREA NITROGEN 11 mg/dL (7-18); CALCIUM 9.2 mg/dL (8.5-10.1); CHLORIDE 107 mmol/L (98-107); CO2 28 mmol/L (21-32); CREATININE 0.4 mg/dL (0.55-1.3); GLUCOSE,RANDOM 138 mg/dL (74-106); POTASSIUM 3.7 mmol/L (3.5-5.1); SGOT/AST 15 U/L (15-37); SGPT/ALT 26 U/L (13-61); SODIUM 140 mmol/L (136-145); TOT PROT 6.9 g/dl (6.4-8.2)
[2019-04-10 23:03] LABS: PH,URINE 7.5 (5.0-8.0); URINE APPEARANCE CLEAR; URINE BILIRUBIN NEGATIVE (NEGATIVE); URINE COLOR YELLOW; URINE GLUCOSE (UA) NEGATIVE (NEGATIVE); URINE KETONE NEGATIVE (NEGATIVE); URINE LEUK ESTERASE NEGATIVE (NEGATIVE); URINE NITRITE NEGATIVE (NEGATIVE); URINE PROTEIN NEGATIVE (NEGATIVE); URINE UROBILINOGEN 0.2 mg/dL (0.2-1.0)
[2019-04-11 00:20] VITALS: BP 120/66; PULSE 74
--- NOTE | 2019-04-11 14:37 | EKG ---
Test Reason : Blood Pressure : / mmHG Vent. Rate : 075 BPM Atrial Rate : 075 BPM P-R Int : 150 ms QRS Dur : 082 ms QT Int : 396 ms P-R-T Axes : 046 027 048 degrees QTc Int : 442 ms NORMAL SINUS RHYTHM NORMAL ECG WHEN COMPARED WITH ECG OF 03-APR-2019 15:27, NO SIGNIFICANT CHANGE WAS FOUND Confirmed by J CARLOS VEGAS MD ([id number]) on 04/11/2019 2:36:42 PM Referred By: Confirmed By:J CARLOS VEGAS MD
== END 2019-04-11 00:19 | disposition home or self-care (01) ==
LOC: JER 20:39
PROC: 3E033GC Introduction of Other Therapeutic Substance into Peripheral Vein, Percutaneous Approach (ICD-10-PCS; principal; 2019-04-10)
DX: R10.9 Unspecified abdominal pain (principal); R11.0 Nausea; I10 Essential (primary) hypertension; E05.90 Thyrotoxicosis, unspecified without thyrotoxic crisis or storm
CPT/HCPCS: 36415; 80053; 81003; 84439; 84443; 84480; 84481; 84484; 85025; 87086; 93005; 93010; 99284-25; J7030

== ENCOUNTER 2019-06-05 13:51 | Emergency (ER) | payer OTHER ==
[2019-06-05 13:59] VITALS: TEMP 98.1; BMI 25.6
--- NOTE | 2019-06-05 14:20 | PDOC ---
History of Present Illness - General Chief Complaint: Weakness Stated Complaint: numbness/ tingling to hands, feet Time Seen by Provider: 06/05/19 14:19 - History of Present Illness Initial Comments: 06/05/19 14:24 Source: The patient is accompanied by family who assist in providing the history. HPI: 48 year old woman with a history of HTN and Graves disease s/p radioactive iodine therapy (April 01, 2019) recently started on synthroid (06/02 50mcg, Dr. Medina) who presents after a transient episode of hypertention to 200/110 with tachycardia to 105 three hours ago. At that time she experienced "full body numbness," nausea, loss of visions (flashing lights only), and palpitations. Blood pressure and symptoms resolved over the next 15-20 minutes without intervention. Her BP is currently managed with losartan 50mg and has been in the 90s-100s systolic for several weeks. Over the past 2-3 days she has experienced sleepless nights 2/2 numbness and tingling, heat and cold intolerance, fatigue, and constipation. At the time of arrival, patient denies any fever, chills, diaphoresis, chest pain, shortness of breath, dysuria, hematuria, diarrhea. She reports that her symptoms have entirely resolved. Past History - Past Medical History Allergies/Adverse Reactions: Allergies Allergy/AdvReac Type Severity Reaction Status Date / Time No Known Drug Allergies Allergy Verified 06/05/19 13:59 Home Medications: Ambulatory Orders Losartan Potassium 50 mg PO DAILY 03/22/19 Anemia: No Asthma: No Cancer: No Cardiac Disorders: No CVA: No COPD: No CHF: No Dementia: No Diabetes: No GI Disorders: No Disorders: No HTN: Yes Hypercholesterolemia: No Liver Disease: No Seizures: No Thyroid Disease: Yes - Surgical History Abdominal Surgery: No Appendectomy: No Cardiac Surgery: No Cholecystectomy: No Lung Surgery: No Neurologic Surgery: No Orthopedic Surgery: No - Immunization History Immunization Up to Date: Yes - Suicide/Smoking/Psychosocial Hx Smoking History: Never smoked Have you smoked in the past 12 months: No Hx Alcohol Use: No Drug/Substance Use Hx: No Substance Use Type: None Hx Substance Use Treatment: No Review of Systems - Review of Systems Able to Perform ROS?: Yes Is the patient limited Danish proficient: Yes Constitutional: No: Symptoms Reported HEENTM: No: Symptoms Reported Respiratory: No: Symptoms reported Cardiac (ROS): No: Symptoms Reported ABD/GI: No: Symptoms Reported : No: Symptoms Reported Musculoskeletal: No: Symptoms Reported Integumentary: No: Symptoms Reported All Other Systems: Reviewed and Negative *Physical Exam - Vital Signs Last Vital Signs Temp Pulse Resp BP Pulse Ox 98.1 F 70 18 133/85 100 06/05/19 13:57 06/05/19 13:57 06/05/19 13:57 06/05/19 13:57 06/05/19 14:00 - Physical Exam Comments: 06/05/19 15:12 Vitals reviewed, AFVSS Gen: WDWN woman, appears stated age, relaxed in bed HEENT: Normal morphologies, EOMI, PERLLA, neck soft and nontender - no evidence of goiter CV: RRR, nl s1/s2, no murmurs rubs or gallops Pulm: CTABL, normal work of breathing, no wheezes rales or rhonchi Abd: Soft, nontender, nondistended Ext: Warm and well perfused, no clubbing cyanosis or edema Pulses: 2+ PT and radial pulses Neuro: Cranial nerves 2-12 intact, 5+ construction safety manager strength / UE / LE, normal sensation throughout ED Treatment Course - LABORATORY CBC & Chemistry Diagram: 06/05/19 15:10 06/05/19 15:10 Medical Decision Making - Medical Decision Making 06/05/19 15:06 48 year old woman with a history of HTN and Graves disease s/p radioactive iodine therapy (April 01, 2019) recently started on synthroid (06/02 50mcg, Dr. Medina) who presents after a transient episode of hypertention to 200/110 with tachycardia to 105 three hours ago. Reassuring for spontaneous resolution without intervention - patient education; suggested second 50mg dose of Losartan in symptomatic hypertension at home as per endocrine recommendation. Physical exam unremarkable, no focal neurologic findings, vital signs stable in the department. Concern regarding thyroid hormone levels 2/2 history of several days of sx of hyperthyroidism in setting of new synthroid RX - however, this would not explain the sudden onset / resolution of her symptoms. Pt is well appearing in the ED and will likely be discharged with close PCP followup if labs are normal and remains stable. DDX: consider hyperthyroidism in setting of synthroid use vs electrolyte derangement vs anxiety / panic attack. r/o acs in 48 yo woman with n/v arm numbness and tingling. Current menopause could play a role in temperature swings / unclear temp intolerance. - CBC, CMP, Troponin - EKG 06/05/19 16:14 - CBC, CMP, Troponin wnl - TSH / T3 / T4 were run, abnormal in an anticipated pattern - Patient remains clinically well, HDS, without symptoms - Plan for discharge home *DC/Admit/Observation/Transfer Diagnosis at time of Disposition: HTN (hypertension) - Discharge Dispostion Disposition: HOME Condition at time of disposition: Good Decision to Admit order: No - Referrals Referrals: Steven Rendon MD [Primary Care Provider] - - Patient Instructions Printed Discharge Instructions: DI for Malignant Hypertension Additional Instructions: 1) Please follow-up with your primary care doctor and Hris Developer in the next week. Please call tomorrow to schedule a follow up appointment. If you cannot follow up with your doctor within 1 week please return to the Emergency Department for any urgent issues. 2) Your laboratory results were normal here in the ER. 3) If you have any worsening of symptoms or any other concerns please return to the ER immediately. Return if worsening symptoms including fevers, headache, vomiting, visual or hearing disturbances, abdominal pain, chest pain, shortness of breath, syncope, dehydration, inability to take things by mouth/vomiting, altered mental status, or worsening concerning symptoms. 4) Please continue taking your home medications as directed. - Post Discharge Activity
[2019-06-05 15:32] LABS: BASO % 0.5 % (0-2.0); EOS % 1.6 % (0-4.5); HEMATOCRIT 37.9 % (32.4-45.2); HEMOGLOBIN 12.7 GM/dL (10.7-15.3); LYMPH % 18.4 % (8-40); MCH 28.8 pg (25.7-33.7); MCHC 33.6 g/dl (32.0-36.0); MEAN CELL VOLUME 85.7 fl (80-96); MEAN PLT VOLUME 7.8 fl (7.5-11.1); MONO % 3.7 % (3.8-10.2); NEUT % 75.8 % (42.8-82.8); RBC 4.42 M/mm3 (3.60-5.2); RDW 16.2 % (11.6-15.6); WHITE BLOOD COUNT 6.5 K/mm3 (4.0-10.0)
[2019-06-05 15:44] LABS: PLATELET COUNT 279 K/MM3 (134-434)
[2019-06-05 15:57] LABS: BILIRUBIN,TOTAL 0.3 mg/dL (0.2-1); BLOOD UREA NITROGEN 11.3 mg/dL (7-18); CALCIUM 9.1 mg/dL (8.5-10.1); CREATININE 0.7 mg/dL (0.55-1.3); POTASSIUM 3.9 mmol/L (3.5-5.1); TOT PROT 7.4 g/dl (6.4-8.2)
--- NOTE | 2019-06-05 16:21 | PDOC ---
Documentation entered by Alejandro Gordon SCRIBE, acting as scribe for Curry Mcclellan MD. Curry Mcclellan MD: This documentation has been prepared by the Evan allen Daniel, SCRIBE, under my direction and personally reviewed by me in its entirety. I confirm that the documentation accurately reflects all work, treatment, procedures, and medical decision making performed by me. Attending Attestation - Resident Resident Name: WidlerLuis M - ED Attending Attestation I have performed the following: I have examined & evaluated the patient, The case was reviewed & discussed with the resident, I agree w/resident's findings & plan, Exceptions are as noted - HPI HPI: 06/05/19 15:31 The patient is a 48 year old female with a past medical history of Graves disease s/p ablation here today for evaluation of elevated blood pressure. The patient reports that around noon today she was feeling unwell, with lightheadedness, blurry vision, and generalized weakness. She took her blood pressure and found it to be 200/110. Pt states that her BP gradually improved on its own, and after about 15 minutes, her BP was back to baseline. All of her symptoms resolved spontaneously as well. Pt currently has no complaints. Pt notes she is taking losartan 40mg daily. Has not missed any doses. She was also started on synthroid 3 days ago. Allergies: NKDA PCP: Steven Rendon Monotypist: Erasto Medina - Physicial Exam PE: 06/05/19 16:20 "GENERAL: Awake, alert, and fully oriented, in no acute distress. HEAD: No signs of trauma EYES: PERRLA, EOMI, sclera anicteric, conjunctiva clear ENT: Auricles normal inspection, hearing grossly normal, nares patent, oropharynx clear without exudates. Moist mucosa NECK: Nontender, no stepoffs, Normal ROM, supple, no lymphadenopathy, JVD, or masses LUNGS: Breath sounds equal, clear to auscultation bilaterally. No wheezes, and no crackles HEART: Regular rate and rhythm, normal S1 and S2, no murmurs, rubs or gallops ABDOMEN: Soft, nontender, normoactive bowel sounds. No guarding, no rebound. No masses EXTREMITIES: Normal range of motion, no edema. No clubbing or cyanosis. No cords, erythema, or tenderness NEUROLOGICAL: Cranial nerves II through XII intact. 5/5 strength and sensation in all extremities, Normal speech, normal gait, normal cerebellar function SKIN: Warm, Dry, normal turgor, no rashes or lesions noted. - Medical Decision Making 06/05/19 16:20 48 F with transient hypertension associated with lightheadedness, blurry vision , and weakness, all now resolved. Pt with normal vitals in ED. - Labs wnl, trop negative - EKG nonischemic Pt is well appearing, with normal vitals. Clinically stable for DC at this time. I discussed the physical exam findings, ancillary test results and final diagnoses with the patient. I answered all of the patient's questions. The patient was satisfied with the care received and felt comfortable with the discharge plan and treatment plan. The patient agrees to follow up with the primary care physician within 24-72 hours.
[2019-06-05 16:31] VITALS: BP 139/74; PULSE 72
--- NOTE | 2019-06-05 17:01 | EKG ---
Test Reason : Blood Pressure : / mmHG Vent. Rate : 064 BPM Atrial Rate : 064 BPM P-R Int : 152 ms QRS Dur : 086 ms QT Int : 394 ms P-R-T Axes : 039 021 037 degrees QTc Int : 406 ms POOR DATA QUALITY, INTERPRETATION MAY BE ADVERSELY AFFECTED NORMAL SINUS RHYTHM NORMAL ECG WHEN COMPARED WITH ECG OF 10-APR-2019 22:34, NONSPECIFIC T WAVE ABNORMALITY NOW EVIDENT IN ANTERIOR LEADS Confirmed by SUNNI GONZALEZ, MODE ([id number]) on 06/05/2019 5:00:56 PM Referred By: Confirmed By:MODE MOELLER MD
== END 2019-06-05 16:30 | disposition home or self-care (01) ==
LOC: JER 13:51
DX: I10 Essential (primary) hypertension (principal); E05.00 Thyrotoxicosis with diffuse goiter without thyrotoxic crisis or storm
CPT/HCPCS: 36415; 80053; 84439; 84443; 84481; 84484; 85025; 93005; 93010; 99283-25

== ENCOUNTER 2019-06-05 19:10 | Emergency (ER) | payer OTHER ==
--- NOTE | 2019-06-05 19:16 | PDOC ---
Rapid Medical Evaluation Time Seen by Provider: 06/05/19 19:12 Medical Evaluation: Allergies Allergy/AdvReac Type Severity Reaction Status Date / Time No Known Drug Allergies Allergy Verified 06/05/19 13:59 06/05/19 19:14 I have performed a brief in-person evaluation of this patient. The patient presents with a chief complaint of: chest pain and SOB. Pt evaluated earlier in this ER. Symptoms started upon arrival at home s/p discharge Pertinent physical exam findings: tachypneic. otherwise unremarkable. I have ordered the following: ekg The patient will proceed to the ED for further evaluation. Discharge Disposition - Diagnosis SOB (shortness of breath) - Referrals Referrals: Steven Rendon MD [Primary Care Provider] - - Patient Instructions - Post Discharge Activity
[2019-06-05 19:21] VITALS: BMI 25.6
--- NOTE | 2019-06-05 21:08 | PDOC ---
Documentation entered by Payal Mulligan SCRIBE, acting as scribe for Haley Sanchez MD. Haley Sanchez MD: This documentation has been prepared by the Ese allen Xhesika, SCRIBE, under my direction and personally reviewed by me in its entirety. I confirm that the documentation accurately reflects all work, treatment, procedures, and medical decision making performed by me. Attending Attestation - Resident Resident Name: Ciro Billy - ED Attending Attestation I have performed the following: I have examined & evaluated the patient, The case was reviewed & discussed with the resident, I agree w/resident's findings & plan - HPI HPI: 06/05/19 21:06 48 year old woman with a history of HTN and Graves disease s/p radioactive iodine therapy (April 01, 2019) recently started on synthroid (06/02 50mcg, Dr. Medina) who presents with various complaints. after getting home this evening , she was taking PO when, she developed frontal-temporal headache, dyspnea, sweats, nausea, anterior chest pressure /nonradiating. she took her 6pm dose of losartan, extra dose. she noted her blood pressure to be elevated, SBP 180s with the symptoms. denies stressors. no recent illnesses. no dietary or salty intake. no particular triggers, exacerbating or alleviating factors. seen earlier today in the ED here for HTN 200/110 with tachycardia, dc'd home with neg workup - earlier she had nausea, total body numbness, photosensitivity and flashing lights, palpitations, which was worse this afternoon currently no symptoms, no mendiola/ dizziness, cp or sob. recently started on synthroid about 4 days ago for her hypothyroid state 06/05/19 22:07 06/05/19 22:09 - Physicial Exam PE: 06/05/19 21:08 Agree with the resident's HPI and PE as documented in the electronic medical record. NAD, well appearing, EOMI, PERRL, nl conjunctiva, anicteric; neck supple. lungs clear, RRR, no murmur, abdomen soft nontender. Back nontender. VELASQUEZ x4, no focal neuro deficits. No peripheral edema. normal color for ethnicity, WWP. speech clear. 5/5 fashion director strength. 5/5 prox and distal strength, SILT in all extrem. gait stable, no ataxia. 06/05/19 22:10 - Medical Decision Making 06/05/19 22:10 See HPI for details. Prior notes reviewed, including admissions, discharges and consultations. Vital signs reviewed, wnl. hypertensive initially, downtrended. DDX hypertension, urgency/emergency, electrolyte/metabolic derangements laboratory results and imaging reviewed, basic labs and lytes wnl, CXR_clear, no acute chest pathology Cardiac panel_neg trop x1, needs second 3hr trop rule out. EKG normal sinus rhythm at 79 bpm, no interval abnormalities, narrow QRS, ST and T wave segments and morphology normal. Nonspecific T wave abnormalities - unchanged ED course -interventions: - tele no events, no symptoms, HD appropriate, BP much improved to BP 140/80s - heart score 3, low risk for MACE at 4-6 weeks 2 trops, ekg repeat and reassess, trop neg, EKG unchanged can f/u outpatient with PMD for bp med adjustment, avoid stressors, diet and exercise modifications, risk factor modification. Pt to be discharged in stable condition. Patient and family made aware of clinical impression, treatment recommendations and disposition plan, return precautions discussed (including but not limited to new or persistent/worsening symptoms, pain, fevers, or signs of infection, chest pain, respiratory distress , inability to tolerate oral intake, dehydration, syncope, or neurologic changes ). Follow up with PMD and/or cards specialist as recommended, follow up information provided, take medications as instructed for duration of time. continue with supportive care, avoid triggers and precipitants. All questions answered to patient's satisfaction and expressed understanding and comfort with this. At the time of discharge, the patient is alert, clinically improved, tolerating po and verbalizes understanding of instructions, satisfied with the care received and felt comfortable with the plan. Patient does not suffer from an acute life-threatening medical condition at this time and is safe for outpatient follow-up. 06/05/19 22:41 06/05/19 22:42 06/06/19 02:09 06/06/19 02:10 Heart Score/ECG Review - History History: Slightly suspicious - Electrocardiogram EKG: Non specific repolarization disturbance - Age Age: 45-65 - Risk Factors Risk Factors Heart Score: Yes Hx Hypertension Based on the list above the patient has:: 1-2 risk factors - Troponin Troponin: </= normal limit - Score Heart Score - Total: 3 #1 ECG reviewed & interpreted by me at: 19:05 General ECG Interpretation: Sinus Rhythm, Normal Rate, Normal Intervals Compared to previous ECG there are: No significant change 06/05/19 22:42 EKG normal sinus rhythm at 79 bpm, no interval abnormalities, narrow QRS, ST and T wave segments and morphology normal. Nonspecific T wave abnormalities - unchanged
--- NOTE | 2019-06-05 21:16 | PDOC ---
History of Present Illness - History of Present Illness Initial Comments: Ms. Sethi is a 48F with PMH of HTN and Graves' disease presenting this evening for high blood pressure reading at home (178/90), abdominal discomfort, frontal headache, shortness of breath, nausea, and diaphoresis. She was seen here earlier today for similar symptoms, though she states that it was not as bad this afternoon. Describes having hot and cold flashes and sensitivity to light. She took her Losartan 50 mg once in the morning and once in the afternoon. Denies chest pain. <Ciro Billy - Last Filed: 06/06/19 01:46> <Haley Sanchez - Last Filed: 06/06/19 02:11> - General Chief Complaint: Shortness of Breath Stated Complaint: DIFF BREATHING Time Seen by Provider: 06/05/19 19:12 Past History - Past Medical History Anemia: No Asthma: No Cancer: No Cardiac Disorders: No CVA: No COPD: No CHF: No Dementia: No Diabetes: No GI Disorders: No Disorders: No HTN: Yes Hypercholesterolemia: No Liver Disease: No Seizures: No Thyroid Disease: Yes - Surgical History Abdominal Surgery: No Appendectomy: No Cardiac Surgery: No Cholecystectomy: No Lung Surgery: No Neurologic Surgery: No Orthopedic Surgery: No - Immunization History Immunization Up to Date: Yes - Suicide/Smoking/Psychosocial Hx Smoking History: Never smoked Have you smoked in the past 12 months: No Hx Alcohol Use: No Drug/Substance Use Hx: No Substance Use Type: None Hx Substance Use Treatment: No <Ciro Billy - Last Filed: 06/06/19 01:46> <Haley Sanchez - Last Filed: 06/06/19 02:11> - Past Medical History Allergies/Adverse Reactions: Allergies Allergy/AdvReac Type Severity Reaction Status Date / Time No Known Drug Allergies Allergy Verified 06/05/19 19:18 Home Medications: Ambulatory Orders Losartan Potassium 50 mg PO DAILY 03/22/19 Levothyroxine [Synthroid -] 50 mcg PO DAILY 06/05/19 Review of Systems - Review of Systems Able to Perform ROS?: Yes Is the patient limited Latvian proficient: No Constitutional: Yes: See HPI, Diaphoresis, Loss of Appetite. No: Chills, Fever , Weakness HEENTM: Yes: See HPI. No: Eye Pain, Nose Pain, Nose Bleeding, Hearing Loss, Throat Pain Respiratory: Yes: See HPI, Shortness of Breath. No: Cough, Orthopnea, Stridor, Wheezing Cardiac (ROS): Yes: See HPI. No: Chest Pain, Edema, Lightheadedness, Palpitations, Syncope, Chest Tightness ABD/GI: Yes: See HPI, Nausea. No: Abdominal Distended, Vomiting : Yes: See HPI. No: Burning, Dysuria Musculoskeletal: Yes: See HPI. No: Back Pain, Joint Pain, Muscle Pain Integumentary: Yes: See HPI. No: Bruising, Rash Neurological: Yes: See HPI, Headache. No: Seizure, Tremors, Unsteady Gait Endocrine: Yes: Symptoms Reported, See HPI, Flushing, Intolerance to Cold, Intolerance to Heat <Ciro Billy - Last Filed: 06/06/19 01:46> *Physical Exam - Vital Signs Last Vital Signs Temp Pulse Resp BP Pulse Ox 98 F 69 18 133/82 95 06/05/19 19:30 06/05/19 19:30 06/05/19 19:30 06/05/19 19:30 06/05/19 19:30 - Physical Exam General Appearance: Yes: Appropriately Dressed. No: Apparent Distress HEENT: positive: EOMI, ILIA, Normal ENT Inspection, Normal Voice, Symmetrical, Pharynx Normal Neck: positive: Trachea midline, Supple. negative: Tender, Rigid Respiratory/Chest: positive: Lungs Clear, Normal Breath Sounds, Respiratory Distress. negative: Chest Tender, Accessory Muscle Use Cardiovascular: positive: Regular Rhythm, Regular Rate Vascular Pulses: Dorsalis-Pedis (R): 2+, Doralis-Pedis (L): 2+ Gastrointestinal/Abdominal: positive: Tender (mild, RUQ ), Flat, Soft. negative : Organomegaly, Pulsatile Mass, Guarding, Rebound Musculoskeletal: positive: Normal Inspection. negative: CVA Tenderness Extremity: positive: Normal Capillary Refill, Normal Inspection, Normal Range of Motion. negative: Tender Integumentary: positive: Normal Color, Dry, Warm Neurologic: positive: program director air talent II-XII NML intact, Fully Oriented, Alert, Normal Mood/ Affect, Normal Response, Motor Strength 5/5 <Ciro Billy - Last Filed: 06/06/19 01:46> - Vital Signs Last Vital Signs Temp Pulse Resp BP Pulse Ox 98 F 68 19 114/87 98 06/06/19 01:24 06/06/19 01:24 06/06/19 01:24 06/06/19 01:24 06/06/19 01:24 <Haley Sanchez - Last Filed: 06/06/19 02:11> ED Treatment Course - LABORATORY CBC & Chemistry Diagram: 06/05/19 21:50 06/05/19 21:50 <Ciro Billy - Last Filed: 06/06/19 01:46> - LABORATORY CBC & Chemistry Diagram: 06/05/19 21:50 06/05/19 21:50 - ADDITIONAL ORDERS Additional order review: Laboratory Results 06/06/19 06/05/19 01:14 21:50 Sodium 141 Potassium 4.0 Chloride 108 H Carbon Dioxide 28 Anion Gap 6 L BUN 11.8 Creatinine 0.8 Est GFR (CKD-EPI)AfAm 99.63 Est GFR (CKD-EPI)NonAf 85.96 Random Glucose 115 H Calcium 9.4 Total Bilirubin 0.3 AST 20 ALT 38 Alkaline Phosphatase 142 H Troponin I < 0.02 < 0.02 Total Protein 7.6 Albumin 4.2 06/05/19 21:50 RBC 4.43 MCV 85.9 MCHC 34.0 RDW 15.9 H MPV 7.7 Neutrophils % 75.3 Lymphocytes % 20.0 Monocytes % 3.6 L Eosinophils % 0.6 Basophils % 0.5 - RADIOLOGY Radiology Studies Ordered: Category Date Time Status CHEST X-RAY PORTABLE* [RAD] Stat Radiology 06/05/19 21:09 Taken - Medications Given in the ED: ED Medications Discontinued Medications Generic Name Dose Route Start Last Admin Trade Name Freq PRN Reason Stop Dose Admin Acetaminophen 975 mg 06/05/19 21:38 06/05/19 21:59 Tylenol - PO 06/05/19 21:39 975 mg ONCE ONE Administration <Haley Sanchez - Last Filed: 06/06/19 02:11> Medical Decision Making - Medical Decision Making 06/05/19 2100 48F with PMH of HTN of Graves' disease and HTN presenting for recurrence of high blood pressure, diaphoresis, shortness of breath, headache, and mild stomach ache. Denies chest pain. She has hot and cold flashes which may be related to her thyroid condition, as she recently went from being hyperthyroid to hypothyroid after her treatment for Graves disease. Seen here earlier today with a troponin wnl. Will repeat troponin x2. Will obtain CXR, CBC, CMP. EKG shows NSR 75 bpm, no axis deviation, no ST elevation/depression, QTc 433 ms. 06/05/2019 2150 First troponin within normal limits 06/06/19 0030 Patient reassessed - no shortness of breath, headache improved. Mild abdominal pain associated with PO intake. Will redraw troponin labs and if normal plan to discharge home and follow up with PCP and drama teacher. Patient signed out to Dr. Crooks. <Ciro Billy - Last Filed: 06/06/19 01:46> *DC/Admit/Observation/Transfer <Ciro Billy - Last Filed: 06/06/19 01:46> <Haley Sanchez - Last Filed: 06/06/19 02:11> Diagnosis at time of Disposition: Hypertension, Chest pain - Discharge Dispostion Disposition: HOME Condition at time of disposition: Good - Referrals Referrals: Erasto Medina MD [Staff Physician] - Steven Rendon MD [Primary Care Provider] - - Patient Instructions Printed Discharge Instructions: DI for Chest Pain, Essential Hypertension Additional Instructions: You were seen in the emergency room today for your blood pressure elevation, shortness of breath and chest pain/headache Your blood tests were all normal. I highly recommend you make an appointment with your doctor about your thyroid. Take your medications as directed. Come back to the emergency room if your blood pressure is over 200/100, if you have chest pain, if you have difficulty breathing, if your heart rate is fast, if you have changes in vision or if any new concerning symptom develops. Thank you - Post Discharge Activity
[2019-06-05] MEDS ORDERED: ACETAMINOPHEN 500 MG TABLET (FP) PO ONE (21:38)
[2019-06-05] MEDS ORDERED: ACETAMINOPHEN 325 MG TABLET (FP) ONE (21:52)
[2019-06-05 21:54] LABS: BASO % 0.5 % (0-2.0); EOS % 0.6 % (0-4.5); HEMATOCRIT 38.1 % (32.4-45.2); HEMOGLOBIN 12.9 GM/dL (10.7-15.3); MCH 29.2 pg (25.7-33.7); MEAN CELL VOLUME 85.9 fl (80-96); MEAN PLT VOLUME 7.7 fl (7.5-11.1); MONO % 3.6 % (3.8-10.2); NEUT % 75.3 % (42.8-82.8); PLATELET COUNT 271 K/MM3 (134-434); RBC 4.43 M/mm3 (3.60-5.2); RDW 15.9 % (11.6-15.6); WHITE BLOOD COUNT 7.8 K/mm3 (4.0-10.0)
[2019-06-05 22:14] LABS: ALBUMIN 4.2 g/dl (3.4-5.0); ALK PHOS 142 U/L (45-117); ANION GAP 6 MMOL/L (8-16); BILIRUBIN,TOTAL 0.3 mg/dL (0.2-1); BLOOD UREA NITROGEN 11.8 mg/dL (7-18); CALCIUM 9.4 mg/dL (8.5-10.1); CHLORIDE 108 mmol/L (98-107); CO2 28 mmol/L (21-32); CREATININE 0.8 mg/dL (0.55-1.3); GLUCOSE,RANDOM 115 mg/dL (74-106); SGOT/AST 20 U/L (15-37); SGPT/ALT 38 U/L (13-61); SODIUM 141 mmol/L (136-145); TOT PROT 7.6 g/dl (6.4-8.2)
--- NOTE | 2019-06-06 01:12 | PDOC ---
*Physical Exam - Vital Signs Last Vital Signs Temp Pulse Resp BP Pulse Ox 97.9 F 76 18 141/88 98 06/05/19 22:57 06/05/19 22:57 06/05/19 19:30 06/05/19 22:57 06/05/19 22:57 - Physical Exam Comments: 06/06/19 01:46 pt resting comfortably in bed <Vonda Crooks - Last Filed: 06/06/19 01:51> - Vital Signs Last Vital Signs Temp Pulse Resp BP Pulse Ox 98 F 68 19 114/87 98 06/06/19 01:24 06/06/19 01:24 06/06/19 01:24 06/06/19 01:24 06/06/19 01:24 <Haley Sanchez - Last Filed: 06/06/19 02:11> ED Treatment Course - LABORATORY CBC & Chemistry Diagram: 06/05/19 21:50 06/05/19 21:50 - ADDITIONAL ORDERS Additional order review: Laboratory Results 06/05/19 21:50 Sodium 141 Potassium 4.0 Chloride 108 H Carbon Dioxide 28 Anion Gap 6 L BUN 11.8 Creatinine 0.8 Est GFR (CKD-EPI)AfAm 99.63 Est GFR (CKD-EPI)NonAf 85.96 Random Glucose 115 H Calcium 9.4 Total Bilirubin 0.3 AST 20 ALT 38 Alkaline Phosphatase 142 H Troponin I < 0.02 Total Protein 7.6 Albumin 4.2 06/05/19 21:50 RBC 4.43 MCV 85.9 MCHC 34.0 RDW 15.9 H MPV 7.7 Neutrophils % 75.3 Lymphocytes % 20.0 Monocytes % 3.6 L Eosinophils % 0.6 Basophils % 0.5 - Medications Given in the ED: ED Medications Discontinued Medications Generic Name Dose Route Start Last Admin Trade Name Freq PRN Reason Stop Dose Admin Acetaminophen 975 mg 06/05/19 21:38 06/05/19 21:59 Tylenol - PO 06/05/19 21:39 975 mg ONCE ONE Administration <Vonda Crooks - Last Filed: 06/06/19 01:51> - LABORATORY CBC & Chemistry Diagram: 06/05/19 21:50 06/05/19 21:50 - ADDITIONAL ORDERS Additional order review: Laboratory Results 07/12/19 07/11/19 01:14 21:50 Sodium 141 Potassium 4.0 Chloride 108 H Carbon Dioxide 28 Anion Gap 6 L BUN 11.8 Creatinine 0.8 Est GFR (CKD-EPI)AfAm 99.63 Est GFR (CKD-EPI)NonAf 85.96 Random Glucose 115 H Calcium 9.4 Total Bilirubin 0.3 AST 20 ALT 38 Alkaline Phosphatase 142 H Troponin I < 0.02 < 0.02 Total Protein 7.6 Albumin 4.2 06/05/19 21:50 RBC 4.43 MCV 85.9 MCHC 34.0 RDW 15.9 H MPV 7.7 Neutrophils % 75.3 Lymphocytes % 20.0 Monocytes % 3.6 L Eosinophils % 0.6 Basophils % 0.5 - RADIOLOGY Radiology Studies Ordered: Category Date Time Status CHEST X-RAY PORTABLE* [RAD] Stat Radiology 06/05/19 21:09 Taken - Medications Given in the ED: ED Medications Discontinued Medications Generic Name Dose Route Start Last Admin Trade Name Freq PRN Reason Stop Dose Admin Acetaminophen 975 mg 06/05/19 21:38 06/05/19 21:59 Tylenol - PO 06/05/19 21:39 975 mg ONCE ONE Administration <Haley Sanchez - Last Filed: 06/06/19 02:11> Medical Decision Making - Medical Decision Making 06/06/19 01:[address] Billy 48yo F with PMH of HTN and Graves disease s/p radioactive iodine therapy (March) recently started on synthroid (06/02 50mcg, Dr. Medina) who presents with frontal-temporal headache, dyspnea, sweats, nausea, anterior chest pressure /nonradiating. she took her 6pm dose of losartan, extra dose. she noted her blood pressure to be elevated, SBP 180s with the symptoms. seen earlier today in the ED here for HTN 200/110 with tachycardia, dc'd home with neg workup - earlier she had nausea, total body numbness, photosensitivity and flashing lights, palpitations, which was worse this afternoon currently no symptoms, no mendiola/ dizziness, cp or sob. recently started on synthroid about 4 days ago for her hypothyroid state labs wnl. ekg nsr, no acute changes from earlier. pending second trop second ekg: nsr. similar to prior upon evaluating pt, she was resting comfortably in stretcher, stating she is feeling fine. pending second troponin. if normal can be dc home. <Vonda Crooks - Last Filed: 06/06/19 01:51> *DC/Admit/Observation/Transfer - Discharge Dispostion Decision to Admit order: No <Vonda Crooks - Last Filed: 06/06/19 01:51> <Haley Sanchez - Last Filed: 06/06/19 02:11> Diagnosis at time of Disposition: Hypertension, Chest pain - Discharge Dispostion Disposition: HOME Condition at time of disposition: Good - Referrals Referrals: Steven Rendon MD [Primary Care Provider] - Erasto Medina MD [Staff Physician] - - Patient Instructions Printed Discharge Instructions: Essential Hypertension, DI for Chest Pain Additional Instructions: You were seen in the emergency room today for your blood pressure elevation, shortness of breath and chest pain/headache Your blood tests were all normal. I highly recommend you make an appointment with your doctor about your thyroid. Take your medications as directed. Come back to the emergency room if your blood pressure is over 200/100, if you have chest pain, if you have difficulty breathing, if your heart rate is fast, if you have changes in vision or if any new concerning symptom develops. Thank you - Post Discharge Activity
[2019-06-06 02:21] VITALS: BP 126/79; PULSE 59; TEMP 97.9
--- NOTE | 2019-06-06 13:31 | EKG ---
Test Reason : Blood Pressure : / mmHG Vent. Rate : 056 BPM Atrial Rate : 056 BPM P-R Int : 160 ms QRS Dur : 090 ms QT Int : 440 ms P-R-T Axes : 051 035 055 degrees QTc Int : 424 ms SINUS BRADYCARDIA WHEN COMPARED WITH ECG OF 05-JUN-2019 14:19, NO SIGNIFICANT CHANGE WAS FOUND Confirmed by J CARLOS VEGAS MD ([id number]) on 06/06/2019 1:30:35 PM Referred By: Confirmed By:J CARLOS VEGAS MD
--- NOTE | 2019-06-07 08:15 | EKG ---
Test Reason : Blood Pressure : / mmHG Vent. Rate : 079 BPM Atrial Rate : 079 BPM P-R Int : 140 ms QRS Dur : 088 ms QT Int : 378 ms P-R-T Axes : 052 020 027 degrees QTc Int : 433 ms NORMAL SINUS RHYTHM WITH SINUS ARRHYTHMIA NONSPECIFIC ST ABNORMALITY ABNORMAL ECG WHEN COMPARED WITH ECG OF 05-JUN-2019 14:19, NONSPECIFIC T WAVE ABNORMALITY, IMPROVED IN ANTERIOR LEADS Confirmed by KIMBERLY GONZALEZ, AGA ([id number]) on 06/07/2019 8:15:08 AM Referred By: Confirmed By:AGA HARRIS MD
== END 2019-06-06 02:53 | disposition home or self-care (01) ==
LOC: JER 19:10
DX: I10 Essential (primary) hypertension (principal); E05.00 Thyrotoxicosis with diffuse goiter without thyrotoxic crisis or storm
CPT/HCPCS: 36415; 71045-TC-FY; 80053; 84484; 85025; 93005; 93010; 99285-25

== ENCOUNTER 2019-06-06 12:23 | Emergency (ER) | payer OTHER ==
--- NOTE | 2019-06-06 12:32 | PDOC ---
Rapid Medical Evaluation Time Seen by Provider: 06/06/19 12:32 Medical Evaluation: Allergies Allergy/AdvReac Type Severity Reaction Status Date / Time No Known Drug Allergies Allergy Verified 06/05/19 19:18 06/06/19 12:32 I have performed a brief in-person evaluation of this patient. The patient presents with a chief complaint of: dizziness and nausea Pertinent physical exam findings: No focal deficits I have ordered the following: labs, ekg, urine The patient will proceed to the ED for further evaluation. Discharge Disposition - Diagnosis Dizziness - Referrals - Patient Instructions - Post Discharge Activity
[2019-06-06 12:39] VITALS: TEMP 98.1; BMI 65.3
[2019-06-06 13:34] LABS: EOS % 0.7 % (0-4.5); HEMATOCRIT 39.7 % (32.4-45.2); HEMOGLOBIN 13.4 GM/dL (10.7-15.3); LYMPH % 26.9 % (8-40); MCH 29.3 pg (25.7-33.7); MCHC 33.6 g/dl (32.0-36.0); MEAN CELL VOLUME 87.2 fl (80-96); MONO % 3.7 % (3.8-10.2); NEUT % 67.7 % (42.8-82.8); PLATELET COUNT 264 K/MM3 (134-434); RBC 4.56 M/mm3 (3.60-5.2); RDW 16.4 % (11.6-15.6); WHITE BLOOD COUNT 3.6 K/mm3 (4.0-10.0)
[2019-06-06 13:48] LABS: INR 1.03 (0.83-1.09); PROTHROMBIN TIME (PATIENT) 12.2 SEC (9.7-13.0)
--- NOTE | 2019-06-06 13:53 | PDOC ---
History of Present Illness - General Chief Complaint: Pain Stated Complaint: HYPERTENSION/HEADACHE Time Seen by Provider: 06/06/19 12:32 History Source: Patient Exam Limitations: No Limitations - History of Present Illness Initial Comments: 06/06/19 13:47 48 yo f h/o graves disease, now hypothyroid, hypertension, started on sythroid 50 mcg daily 4 days ago. here today c/o feeling dizzy today bp was 170/ 95. took losartan 100 mg at 10 am. no chest pain currenlty. but does feel nausea, and flushed when bp is high. happens often during meals. denies currently any chest pain or vision changes. no headache. pt was seen in emergency room last evening had blood work and was given medication. bp improved. left after dc around 1 am. yesterday during episode of elevated bp, pt felt headache, vision, and nausea, and sweating. no f/c . does have hot flashes followed by cold episodes. Past History - Past Medical History Allergies/Adverse Reactions: Allergies Allergy/AdvReac Type Severity Reaction Status Date / Time No Known Drug Allergies Allergy Verified 06/05/19 19:18 Home Medications: Ambulatory Orders Losartan Potassium 50 mg PO DAILY 03/22/19 Levothyroxine [Synthroid -] 50 mcg PO DAILY 06/05/19 Anemia: No Asthma: No Cancer: No Cardiac Disorders: No CVA: No COPD: No CHF: No Dementia: No Diabetes: No GI Disorders: No Disorders: No HTN: Yes Hypercholesterolemia: No Liver Disease: No Seizures: No Thyroid Disease: Yes - Surgical History Abdominal Surgery: No Appendectomy: No Cardiac Surgery: No Cholecystectomy: No Lung Surgery: No Neurologic Surgery: No Orthopedic Surgery: No - Immunization History Immunization Up to Date: Yes - Suicide/Smoking/Psychosocial Hx Smoking History: Never smoked Have you smoked in the past 12 months: No Hx Alcohol Use: No Drug/Substance Use Hx: No Substance Use Type: None Hx Substance Use Treatment: No Review of Systems - Review of Systems Constitutional: No: Chills, Diaphoresis HEENTM: No: Eye Pain Respiratory: No: Cough, Orthopnea, Shortness of Breath Cardiac (ROS): Yes: Edema. No: Chest Pain ABD/GI: Yes: Constipated, Nausea. No: Diarrhea Musculoskeletal: No: Back Pain, Gout, Joint Pain Neurological: Yes: Headache (yesterday) Endocrine: Yes: Excessive Sweating, Flushing, Intolerance to Cold, Intolerance to Heat All Other Systems: Reviewed and Negative *Physical Exam - Vital Signs Last Vital Signs Temp Pulse Resp BP Pulse Ox 98.1 F 79 20 164/93 06/06/19 12:34 06/06/19 12:34 06/06/19 12:34 06/06/19 12:34 - Physical Exam Comments: 06/06/19 13:54 awake alert lungs clear bilat heart rrr no mrg abd soft nt nd ext wwp no edema. no calf tenderness. nuero alert oriented x 3. gait normal speech clear. Heart Score/ECG Review #1 General ECG Interpretation: Sinus Rhythm, Normal Rate (66), Normal Intervals, No acute ischemic changes ED Treatment Course - LABORATORY CBC & Chemistry Diagram: 06/06/19 13:20 06/06/19 13:20 - ADDITIONAL ORDERS Additional order review: Laboratory Results 06/06/19 13:20 WBC 3.6 L RBC 4.56 Hgb 13.4 Hct 39.7 MCV 87.2 MCH 29.3 MCHC 33.6 RDW 16.4 H Plt Count 264 MPV 8.0 Absolute Neuts (auto) 2.4 Neutrophils % 67.7 Lymphocytes % 26.9 D Monocytes % 3.7 L Eosinophils % 0.7 Basophils % 1.0 Nucleated RBC % 0 06/06/19 13:20 RBC 4.56 MCV 87.2 MCHC 33.6 RDW 16.4 H MPV 8.0 Neutrophils % 67.7 Lymphocytes % 26.9 D Monocytes % 3.7 L Eosinophils % 0.7 Basophils % 1.0 Medical Decision Making - Medical Decision Making 06/06/19 13:55 48 yo Fwith h/o graves, now hypothyroid, htn here for second visit for elevated bp. pt describes intermittent episodes of nausea, flushedskin and sweating. recently constipated heat and cold intolerance, chills. no urinary sxs. no vomiting. no cp or headache currently. pt did have headache and vision changes yesterday . will obtain ct head. basic labs. ekg. johann d/w dr schaeffer if se of synthoid meds. 06/06/19 16:03 d/w dr schaeffer, states can increase thyroid medication to 50 mcg twice daily, but will take weeks to take effect. can see him on sunday in 72 hours. 06/06/19 16:[address] pending[address] will increase synthoid to 50 mcg twice dialy. fuwith maksim on sunday. signed out to oncomoing JEAN-PAUL pending ct head. 06/06/19 17:[address] head normal. dc home. *DC/Admit/Observation/Transfer Diagnosis at time of Disposition: Dizziness, Hypothyroid, Hypertension - Discharge Dispostion Disposition: HOME Condition at time of disposition: Improved Decision to Admit order: No - Referrals Referrals: Steven Rendon MD [Primary Care Provider] - Erasto Schaeffer MD [Staff Physician] - - Patient Instructions Printed Discharge Instructions: Hypertension (Alternative Therapy) Additional Instructions: You should follow up with dr schaeffer on sundayjune 09. you can also increase your synthroid to Two times daily. also continue taking your losartan 100 mg daily. return for any chest pain , any shortness of breath or any concerns. your head CT is normal today. - Post Discharge Activity
[2019-06-06 14:02] LABS: ALBUMIN 4.2 g/dl (3.4-5.0); ALK PHOS 142 U/L (45-117); ANION GAP 7 MMOL/L (8-16); BILIRUBIN,TOTAL 0.4 mg/dL (0.2-1); BLOOD UREA NITROGEN 10.6 mg/dL (7-18); CALCIUM 9.4 mg/dL (8.5-10.1); CHLORIDE 108 mmol/L (98-107); CO2 27 mmol/L (21-32); CREATININE 0.7 mg/dL (0.55-1.3); GLUCOSE,RANDOM 123 mg/dL (74-106); MAGNESIUM 2.3 mg/dL (1.8-2.4); POTASSIUM 3.9 mmol/L (3.5-5.1); SGOT/AST 21 U/L (15-37); SGPT/ALT 38 U/L (13-61); SODIUM 142 mmol/L (136-145); TOT PROT 7.7 g/dl (6.4-8.2)
[2019-06-06 16:18] VITALS: BP 136/87; PULSE 66
--- NOTE | 2019-06-06 17:23 | PDOC ---
*Physical Exam - Vital Signs Last Vital Signs Temp Pulse Resp BP Pulse Ox 98.1 F 66 20 136/87 99 06/06/19 12:34 06/06/19 16:17 06/06/19 16:17 06/06/19 16:17 06/06/19 16:17 ED Treatment Course - LABORATORY CBC & Chemistry Diagram: 06/06/19 13:20 06/06/19 13:20 - ADDITIONAL ORDERS Additional order review: Laboratory Results 06/06/19 06/06/19 13:20 13:20 PT with INR 12.20 INR 1.03 Sodium 142 Potassium 3.9 Chloride 108 H Carbon Dioxide 27 Anion Gap 7 L BUN 10.6 Creatinine 0.7 Est GFR (CKD-EPI)AfAm 117.09 Est GFR (CKD-EPI)NonAf 101.02 Random Glucose 123 H Calcium 9.4 Magnesium 2.3 Total Bilirubin 0.4 AST 21 ALT 38 Alkaline Phosphatase 142 H Creatine Kinase 72 Troponin I < 0.02 Total Protein 7.7 Albumin 4.2 06/06/19 13:20 RBC 4.56 MCV 87.2 MCHC 33.6 RDW 16.4 H MPV 8.0 Neutrophils % 67.7 Lymphocytes % 26.9 D Monocytes % 3.7 L Eosinophils % 0.7 Basophils % 1.0 Medical Decision Making - Medical Decision Making Patient signed out to me by Dr. Gaines, pending CT head CT head shows no acute pathology other than acute vs chronic left maxillary sinusitis Patient denies fever, purulent nasal drainage, congestion, rhinorrhea Patient explained copy of results Stable for d/c - advised f/u with her PCP 06/06/19 17:21 *DC/Admit/Observation/Transfer Diagnosis at time of Disposition: Dizziness Hypothyroid Qualifiers: Hypothyroidism type: unspecified Qualified Code(s): E03.9 - Hypothyroidism, unspecified Hypertension Qualifiers: Hypertension type: essential hypertension Qualified Code(s): I10 - Essential ( primary) hypertension - Discharge Dispostion Disposition: HOME Condition at time of disposition: Stable Decision to Admit order: No - Referrals Referrals: Erasto Schaeffer MD [Staff Physician] - Steven Rendon MD [Primary Care Provider] - - Patient Instructions Printed Discharge Instructions: Hypertension (Alternative Therapy) Additional Instructions: You should follow up with dr schaeffer on vasile jennifer 15. you can also increase your synthroid to Two times daily. also continue taking your losartan 100 mg daily. return for any chest pain , any shortness of breath or any concerns. your head CT is normal today. - Post Discharge Activity
--- NOTE | 2019-06-07 08:14 | EKG ---
Test Reason : Blood Pressure : / mmHG Vent. Rate : 077 BPM Atrial Rate : 077 BPM P-R Int : 140 ms QRS Dur : 086 ms QT Int : 386 ms P-R-T Axes : 041 018 015 degrees QTc Int : 436 ms NORMAL SINUS RHYTHM NORMAL ECG WHEN COMPARED WITH ECG OF 06-JUN-2019 01:35, NO SIGNIFICANT CHANGE WAS FOUND Confirmed by AGA HARRIS MD ([id number]) on 06/07/2019 8:14:22 AM Referred By: Confirmed By:AGA HARRIS MD
== END 2019-06-06 18:04 | disposition home or self-care (01) ==
LOC: JER 12:23
DX: I10 Essential (primary) hypertension (principal); E03.9 Hypothyroidism, unspecified
CPT/HCPCS: 36415; 70450-TC; 80053; 82550; 83735; 84484; 85025; 85610; 93005; 93010; 99282-25

== ENCOUNTER 2019-06-06 18:34 | Inpatient (IN) | payer OTHER ==
--- NOTE | 2019-06-06 20:09 | PDOC ---
History of Present Illness <Marybeth Masters - Last Filed: 06/06/19 23:15> - History of Present Illness Initial Comments: 06/06/19 20:00 48 yo F with h/o HTN, Graves disease ( s/p thyroid ablation 04/13), hypothyroidism, who p/w nervousness, weakness, and lightheadedness. Patient seen in ED 06/05/19 for similar complaint of heart racing, high blood pressure, lightheadedness, blurry vision and generalized weakness (06/05/19).Ed course over past two encounters 06/05-06/06 notable for unremarkable, CBC, CMP. TSH 36.5, T4 .42, CTH (06/06) unremarkable, CXR ( unremarkable). 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 Has been advised in ED () to increased dose, and continue Losartan 100 mg QD. Patient with continued/persistent symptoms in ED following earlier discharge (06/06). Reports continued sensation of feeling weak. Patient denies cough, wheezing, orthopena, PND, leg swelling/pain, F,C, CP, SOB , urinary complaints, hematuria, BPR, abdominal pain, diarrhea, constipation, sensory changes. PMHx: as noted above ROS: as noted SHx: Denies Etoh, IVDA, tobacco use Allergies: NKDA <Hema Reyes - Last Filed: 06/07/19 05:09> - General Chief Complaint: Chest Pain Stated Complaint: CHEST PAIN/ BLOOD PRESSURE Time Seen by Provider: 06/06/19 19:22 Past History <Marybeth Masters - Last Filed: 06/06/19 23:15> - Past Medical History Anemia: No Asthma: No Cancer: No Cardiac Disorders: No CVA: No COPD: No CHF: No Dementia: No Diabetes: No GI Disorders: No Disorders: No HTN: Yes Hypercholesterolemia: No Liver Disease: No Seizures: No Thyroid Disease: Yes - Surgical History Abdominal Surgery: No Appendectomy: No Cardiac Surgery: No Cholecystectomy: No Lung Surgery: No Neurologic Surgery: No Orthopedic Surgery: No - Immunization History Immunization Up to Date: Yes - Suicide/Smoking/Psychosocial Hx Smoking History: Never smoked Have you smoked in the past 12 months: No Information on smoking cessation initiated: No Hx Alcohol Use: No Drug/Substance Use Hx: No Substance Use Type: None Hx Substance Use Treatment: No <Hema Reyes - Last Filed: 06/07/19 05:09> - Past Medical History Allergies/Adverse Reactions: Allergies Allergy/AdvReac Type Severity Reaction Status Date / Time No Known Drug Allergies Allergy Verified 06/05/19 19:18 Home Medications: Ambulatory Orders Losartan Potassium 50 mg PO DAILY 03/22/19 Levothyroxine [Synthroid -] 50 mcg PO DAILY 06/05/19 Review of Systems - Review of Systems Comments:: 06/06/19 20:19 GENERAL/CONSTITUTIONAL: + Weakness. No fever or chills. HEAD, EYES, EARS, NOSE AND THROAT: +change in vision. No ear pain or discharge. No sore throat. CARDIOVASCULAR: +shortness of breath RESPIRATORY: No cough, wheezing, or hemoptysis. GASTROINTESTINAL: + nausea. No vomiting, diarrhea or constipation. GENITOURINARY: No dysuria, frequency, or change in urination. MUSCULOSKELETAL: No joint or muscle swelling or pain. No neck or back pain. SKIN: No rash NEUROLOGIC: No headache, vertigo, loss of consciousness, or change in strength/ sensation. ENDOCRINE: No increased thirst. No abnormal weight change HEMATOLOGIC/LYMPHATIC: No anemia, easy bleeding, or history of blood clots. ALLERGIC/IMMUNOLOGIC: No hives or skin allergy. <Hema Reyes - Last Filed: 06/07/19 05:09> *Physical Exam - Vital Signs Last Vital Signs Temp Pulse Resp BP Pulse Ox 98.2 F 74 18 148/94 96 06/06/19 19:20 06/06/19 19:20 06/06/19 19:20 06/06/19 19:20 06/06/19 19:20 <Marybeth Masters - Last Filed: 06/06/19 23:15> - Vital Signs Last Vital Signs Temp Pulse Resp BP Pulse Ox 98.2 F 74 18 148/94 96 06/06/19 19:20 06/06/19 19:20 06/06/19 19:20 06/06/19 19:20 06/06/19 19:20 - Physical Exam Comments: 06/06/19 20:16 GENERAL: Awake, alert, and fully oriented, in no acute distress HEAD: No signs of trauma, normocephalic, atraumatic EYES: PERRLA, EOMI, sclera anicteric, conjunctiva clear ENT: Auricles normal inspection, hearing grossly normal, nares patent, oropharynx clear without exudates. Moist mucosa NECK: Normal ROM, supple, no lymphadenopathy, JVD, or masses LUNGS: No distress, speaks full sentences, clear to auscultation bilaterally HEART: Irregular rate and nml rhythm, normal S1 and S2, no murmurs, rubs or gallops, peripheral pulses normal and equal bilaterally. ABDOMEN: Soft, nontender, normoactive bowel sounds. No guarding, no rebound. No masses EXTREMITIES : Normal inspection, Normal range of motion, no edema. No clubbing or cyanosis. NEUROLOGICAL: Cranial nerves II through XII grossly intact. Normal speech, normal gait, no focal sensorimotor deficits SKIN: Warm, Dry, normal turgor, no rashes or lesions noted <Hema Reyes - Last Filed: 06/07/19 05:09> ED Treatment Course - LABORATORY CBC & Chemistry Diagram: 06/06/19 20:00 06/06/19 20:00 - ADDITIONAL ORDERS Additional order review: Laboratory Results 06/06/19 06/06/19 06/06/19 20:20 20:00 20:00 Sodium 141 Potassium 3.8 Chloride 108 H Carbon Dioxide 27 Anion Gap 6 L BUN 10.0 Creatinine 0.7 Est GFR (CKD-EPI)AfAm 117.09 Est GFR (CKD-EPI)NonAf 101.02 Random Glucose 99 Calcium 9.4 Total Bilirubin 0.3 AST 17 ALT 38 Alkaline Phosphatase 133 H Creatine Kinase 69 Troponin I < 0.02 Total Protein 7.5 Albumin 4.3 Lipase 119 TSH 51.80 H Free T4 0.43 L 06/06/19 20:00 RBC 4.47 MCV 86.3 MCHC 33.7 RDW 16.3 H MPV 8.1 Neutrophils % 59.0 Lymphocytes % 33.5 D Monocytes % 5.4 Eosinophils % 1.6 D Basophils % 0.5 - Medications Given in the ED: ED Medications Discontinued Medications Generic Name Dose Route Start Last Admin Trade Name Freq PRN Reason Stop Dose Admin Levothyroxine Sodium 100 mcg 06/06/19 20:32 06/06/19 21:05 Synthroid - PO 06/06/19 20:33 100 mcg ONCE ONE Administration <Marybeth Masters - Last Filed: 06/06/19 23:15> - LABORATORY CBC & Chemistry Diagram: 06/06/19 20:00 06/06/19 20:00 <Hema Reyes - Last Filed: 06/07/19 05:09> Medical Decision Making - Medical Decision Making 06/06/19 20:14 48 yo F with h/o HTN, Graves disease ( s/p thyroid ablation 04/13), hypothyroidism, who p/w nervousness, and lightheadedness. BP 174/94, vitals otherwise wnl, AF, A&Ox3. Physical exam unremarkable. Patient recently evaluated in ED for ACS/FL, CVA/TIA, cardiac dyssarythmias, metabolic and toxic disarrangements, acid-base disturbances, infection; with subsequent negative workup. ED course only notable for elevated TSH, low T4. Will trend thyroid markers in ED. 06/06/19 21:12 Ed Course: Laboratory Tests 06/05/19 06/05/19 06/06/19 15:10 15:10 20:20 TSH 36.50 H 51.80 H Free T4 0.42 L 0.43 L Patient stable 100 mcg levothyroxine administered Patient admitted, endorsed to medicine team, dr. marie by overnight supervising attn physician <Hema Reyes - Last Filed: 06/07/19 05:09> *DC/Admit/Observation/Transfer - Discharge Dispostion Decision to Admit order: Yes <Marybeth Masters - Last Filed: 06/06/19 23:15> - Discharge Dispostion Decision to Admit order: Yes <Hema Reyes - Last Filed: 06/07/19 05:09> Diagnosis at time of Disposition: Weakness - Discharge Dispostion Disposition: HOME Condition at time of disposition: Stable
[2019-06-06 20:18] LABS: BASO % 0.5 % (0-2.0); EOS % 1.6 % (0-4.5); HEMATOCRIT 38.6 % (32.4-45.2); LYMPH % 33.5 % (8-40); MCH 29.1 pg (25.7-33.7); MCHC 33.7 g/dl (32.0-36.0); MEAN CELL VOLUME 86.3 fl (80-96); MEAN PLT VOLUME 8.1 fl (7.5-11.1); MONO % 5.4 % (3.8-10.2); PLATELET COUNT 261 K/MM3 (134-434); RBC 4.47 M/mm3 (3.60-5.2); RDW 16.3 % (11.6-15.6); WHITE BLOOD COUNT 4.4 K/mm3 (4.0-10.0)
[2019-06-06] MEDS ORDERED: LEVOTHYROXINE NA 100 MCG TABLET (FP) PO ONE (20:32)
[2019-06-06 20:43] LABS: ALBUMIN 4.3 g/dl (3.4-5.0); BILIRUBIN,TOTAL 0.3 mg/dL (0.2-1); CALCIUM 9.4 mg/dL (8.5-10.1); CREATININE 0.7 mg/dL (0.55-1.3); POTASSIUM 3.8 mmol/L (3.5-5.1); TOT PROT 7.5 g/dl (6.4-8.2)
[2019-06-06 20:45] LABS: LIPASE 119 U/L (73-393)
[2019-06-06] MEDS ORDERED: LEVOTHYROXINE NA 25 MCG TABLET (FP) ONE (21:03)
--- NOTE | 2019-06-06 22:58 | PN ---
Teaching Attending Note ATTENDING PHYSICIAN STATEMENT I saw and evaluated the patient. I reviewed the resident's note and discussed the case with the resident. I agree with the resident's findings and plan as documented. Patient presents with multiple nonspecific complaints (flashing lights, full body numbness, feeling like she will pass out, anxiety, etc.) multiple times in several days; pt of Dr. Medina who was recently started on thyroid replacement after having GAYLE ablation for hyperthyroidism (diagnosed earlier in year with i123 scan done showed uptatke 76%). 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 Please see chart regarding frequency of ER assessments and provider documentation. She had issues with HTN that resolved with losartan. NAD AAOx3 RRR s1/2 no mgr Lungs CTAB, w/ sym exp NT ND +BS NC AT EOMI PERRLA No JVD, no goiter, trachea midline CN2-12 wnl, no fnd Normal mood, appropriate behavior EKG reviewed Labs and repeat ER visits reviewed ASSESSMENT AND PLAN: Patient presents with multiple nonspecific symptoms several times in several days and has had multiple negative workups in the ER over the past 48 hours. There was concern relayed that she is unsafe for DC (she does have a safe place to go, no SI/HI, etc.). She did not have any true syncope, the HTN has resolved and though I was not present at earlier visits is likely associated with some degree of anxiety. She has no ischemic changes on EKG and has had multiple negative cardiac enzymes spanning from 3PM yesterday (5 troponins in 30 hours) which are negative. Her TSH is elevated to 50s (previously 30s x2) and FT4 is 0.43 (improved from yesterday at 0.42 with upper limit of normal being 0.76; was 1.5-2.5 range in 03/2019). Review of her chart shows multiple ER visits surrounding her endocrine issues with potential anxiety issues associated (multiple visits in same day, etc.) # Hypothyroidism 2/2 GAYLE ablation with hx hyperthyroidism # HLD # Palpitations # Anxiety # HTN # Elevated alkaline phosphatase (mild) Will continue LT4 at 50 as this was recently started and can take some time to hit steady state; can discuss with her endocrine MD in the AM. Calculate ASCVD score and start statin. Given atypical symptoms with 5x negative troponin in 30 hours with no EKG changes and compelling alternative explanation it is unlikely her current sx are cardiac; she does have risk factors with HLD, etc. Can consider cardiac referral for exercise stress testing. Can get non- urgent echo and monitor HR overnight. Check orthostatics given she feels she will pass out. Full Code
--- NOTE | 2019-06-06 23:19 | PDOC ---
Documentation entered by Alex Mosley SCRIBE, acting as scribe for Marybeth Masters MD. Marybeth Masters MD: This documentation has been prepared by the Dimitri allen Joel, SCRIBE, under my direction and personally reviewed by me in its entirety. I confirm that the documentation accurately reflects all work, treatment, procedures, and medical decision making performed by me. Attending Attestation - Resident Resident Name: Scott Reyesson - ED Attending Attestation I have performed the following: I have examined & evaluated the patient, The case was reviewed & discussed with the resident, I agree w/resident's findings & plan - HPI HPI: 06/06/19 20:53 The patient is a 48 year old female with a significant PMH of HTN and Graves disease (s/p thyroid ablation 03/2019 with subsequent hypothyroidism, on Synthroid) who presents to the emergency department for evaluation of generalized malaise and fatigue. The patient states she has been feeling very tired recently with associated chills, and felt like she was going to pass out earlier today. She also notes a lack of appetite today. The patient was seen earlier today and yesterday for similar complaints and was discharged with Endocrinology follow-up after negative work-ups. She returns tonight after her generalized malaise and fatigue returned after being discharged earlier today. The patient denies chest pain and headache. Denies fever, chills, vomit, diarrhea and constipation. Denies dysuria, frequency, urgency and hematuria. Allergies: NKDA Past surgical history: None reported. Social history: No reported cigarette, alcohol, or drug use. PCP: Dr. Steven Rendon Endocrinology: Dr. Medina - Physicial Exam PE: 06/06/19 22:14 GENERAL: Awake, alert, and fully oriented, in no acute distress. HEAD: No signs of trauma EYES: PERRLA, EOMI, sclera anicteric, conjunctiva clear ENT: Auricles normal inspection, hearing grossly normal, nares patent, oropharynx clear without exudates. Moist mucosa NECK: Nontender, no stepoffs, Normal ROM, supple, no lymphadenopathy, JVD, or masses LUNGS: Breath sounds equal, clear to auscultation bilaterally. No wheezes, and no crackles HEART: Regular rate and rhythm, normal S1 and S2, no murmurs, rubs or gallops ABDOMEN: Soft, nontender, normoactive bowel sounds. No guarding, no rebound. No masses EXTREMITIES: Normal range of motion, no edema. No clubbing or cyanosis. No cords , erythema, or tenderness NEUROLOGICAL: Cranial nerves II through XII intact. 5/5 strength and sensation in all extremities, Normal speech, normal gait, normal cerebellar function SKIN: Warm, Dry, normal turgor, no rashes or lesions noted. - Medical Decision Making 06/06/19 22:13 Pt states that she feels weak and as if she is going to pass out. Her Free T4 is low and her TSH is higher than it was this AM when she came with the same complaint. Pt was given an extra dose of double dose synthroid in the ER and she will be admitted to the medicine team, as she is symptomatically hypothyroid Heart Score/ECG Review - ECG Intrepretation Rhythm: Regular Rhythm - Solon Solon: Normal - QRS Poor R Wave Progression: No Q Wave Present: No - ST and T Early Repolarization: No Non Specific ST-T Wave changes: No Flattened T Waves: No - ECG Impressions Normal ECG: Yes Non-specific ST Elevation: No Ischemic Changes: No Bradycardia: No Torsades denise Pointes: No
--- NOTE | 2019-06-07 02:08 | HP ---
CHIEF COMPLAINT: Nausea and fatigue PCP: Dr. Rendon HISTORY OF PRESENT ILLNESS: 48 y.o. F w. PMH hypertension, hyperthyroidism ( [place]) s/p radioactive iodine therapy (March 2019), now hypothyroid on synthroid (started June 02 2019). Patient c/o nausea and fatigue since leaving the ED yesterday when she had come in for symptoms of palpitations and HTN noticed at home when pt found her BP to be 200/110 which has since resolved. She also endorses cold intolerance, weight loss of undetermined amount over the last few months, decreased appetite and a mild headache. Patient denies chest pain, shortness of breath, difficulty swallowing, muscle pains and fevers. ER course was notable for: (1)EKG: sinus nai, no ischemia (2)Trop x 1 negative (3) TSH 71.8, T4 0.43 Recent Travel: Denies PAST MEDICAL HISTORY: as above in HPI PAST SURGICAL HISTORY: Denies Social History: Smoking: Denies Alcohol: Denies Drugs: Denies Family History: Noncontributory Allergies: NKDA No Known Drug Allergies Allergy (Verified 06/05/19 19:18) HOME MEDICATIONS: Home Medications Medication Instructions Recorded Losartan Potassium 50 mg PO DAILY 03/22/19 Levothyroxine [Synthroid -] 50 mcg PO DAILY 06/05/19 REVIEW OF SYSTEMS CONSTITUTIONAL: generalized weakness, loss of appetite, weight change Absent: fever, chills, diaphoresis, malaise HEENT: Absent: rhinorrhea, nasal congestion, throat pain, throat swelling, difficulty swallowing, mouth swelling, ear pain, eye pain, visual changes CARDIOVASCULAR: S1S2 heard. No Murmurs appreciated. Lightheadedness. Absent: chest pain, syncope, palpitations, irregular heart rate, peripheral edema RESPIRATORY: Absent: cough, shortness of breath, dyspnea with exertion, orthopnea, wheezing, stridor, hemoptysis GASTROINTESTINAL: Absent: abdominal pain, abdominal distension, nausea, vomiting, diarrhea, constipation, melena, hematochezia GENITOURINARY: Absent: frequency, urgency, hematuria, flank pain, genital pain MUSCULOSKELETAL: Absent: myalgia, arthralgia, joint swelling, back pain, neck pain SKIN: Absent: rash, itching, pallor ENDOCRINE: unexplained weight loss, cold intolerance Absent: unexplained weight gain, heat intolerance, cold intolerance NEUROLOGIC: headache, Absent: focal weakness or paresthesias, dizziness, unsteady gait, seizure, mental status changes, PSYCHIATRIC: Absent: anxiety, depression PHYSICAL EXAMINATION Vital Signs - 24 hr 06/06/19 06/06/19 18:49 19:20 Temperature 98.6 F 98.2 F Pulse Rate 77 Pulse Rate [ 74 Left Apical] Respiratory 18 18 Rate Blood Pressure 174/94 H Blood Pressure 148/94 [Right Arm] O2 Sat by Pulse 98 96 Oximetry (%) GENERAL: AOx3, in no acute distress. HEAD: NCAT EYES: Conjunctiva clear. No lid lag present. NECK: Normal range of motion, supple without lymphadenopathy LUNGS: CTABL. No accessory muscle use. HEART: RRR, normal S1 and S2 without murmurs. ABDOMEN: Soft, nontender, not distended, normoactive bowel sounds, no masses. UPPER EXTREMITIES: 2+ pulses b/l. No peripheral edema. LOWER EXTREMITIES: 2+ pulses b/l. No calf tenderness. No peripheral edema. PSYCHIATRIC: Cooperative. Good eye contact. Appropriate mood and affect. SKIN: No rashes or lesions noted. Laboratory Results - last 24 hr Laboratory Last Values WBC 4.4 K/mm3 (4.0-10.0) 06/06/19 20:00 RBC 4.47 M/mm3 (3.60-5.2) 06/06/19 20:00 Hgb 13.0 GM/dL (10.7-15.3) 06/06/19 20:00 Hct 38.6 % (32.4-45.2) 06/06/19 20:00 MCV 86.3 fl (80-96) 06/06/19 20:00 MCH 29.1 pg (25.7-33.7) 06/06/19 20:00 MCHC 33.7 g/dl (32.0-36.0) 06/06/19 20:00 RDW 16.3 % (11.6-15.6) H 06/06/19 20:00 Plt Count 261 K/MM3 (134-434) 06/06/19 20:00 MPV 8.1 fl (7.5-11.1) 06/06/19 20:00 Absolute Neuts (auto) 2.6 K/mm3 (1.5-8.0) 06/06/19 20:00 Neutrophils % 59.0 % (42.8-82.8) 06/06/19 20:00 Lymphocytes % 33.5 % (8-40) D 06/06/19 20:00 Monocytes % 5.4 % (3.8-10.2) 06/06/19 20:00 Eosinophils % 1.6 % (0-4.5) D 06/06/19 20:00 Basophils % 0.5 % (0-2.0) 06/06/19 20:00 Nucleated RBC % 0 % (0-0) 06/06/19 20:00 Sodium 141 mmol/L (136-145) 06/06/19 20:00 Potassium 3.8 mmol/L (3.5-5.1) 06/06/19 20:00 Chloride 108 mmol/L (98-107) H 06/06/19 20:00 Carbon Dioxide 27 mmol/L (21-32) 06/06/19 20:00 Anion Gap 6 MMOL/L (8-16) L 06/06/19 20:00 BUN 10.0 mg/dL (7-18) 06/06/19 20:00 Creatinine 0.7 mg/dL (0.55-1.3) 06/06/19 20:00 Est GFR (CKD-EPI)AfAm 117.09 06/06/19 20:00 Est GFR (CKD-EPI)NonAf 101.02 06/06/19 20:00 Random Glucose 99 mg/dL (74-106) 06/06/19 20:00 Calcium 9.4 mg/dL (8.5-10.1) 06/06/19 20:00 Total Bilirubin 0.3 mg/dL (0.2-1) 06/06/19 20:00 AST 17 U/L (15-37) 06/06/19 20:00 ALT 38 U/L (13-61) 06/06/19 20:00 Alkaline Phosphatase 133 U/L (45-117) H 06/06/19 20:00 Creatine Kinase 69 U/L (26-192) 06/06/19 20:00 Troponin I < 0.02 ng/ml (0.00-0.05) 06/06/19 20:00 Total Protein 7.5 g/dl (6.4-8.2) 06/06/19 20:00 Albumin 4.3 g/dl (3.4-5.0) 06/06/19 20:00 Lipase 119 U/L (73-393) 06/06/19 20:00 TSH 71.80 uIU/ml (0.358-3.74) H 06/07/19 01:44 Free T4 0.43 ng/dl (0.76-1.46) L 06/06/19 20:20 ASSESSMENT/PLAN: 48 y.o. F w/ PMH HTN, hyperthyroidism ([place]) s/p radioactive iodine therapy ( March 2019), now hypothyroid on synthroid (started June 02 2019). Presenting with symptoms of hypothyroidism. #Hypothyroidism 2/2 radioactive iodine ablation therapy -Incr TSH, decr T4 -Synthroid 50 -F/u endocrine #HTN -Monitor BP -Losartan 50 PO daily #FENA -Good PO intake -Monitor BMP -Regular diet -Ambulating well #Code status FULL CODE Visit type - Emergency Visit Emergency Visit: No - New Patient This patient is new to me today: No - Critical Care Critical Care patient: No ATTENDING PHYSICIAN STATEMENT I saw and evaluated the patient. I reviewed the resident's note and discussed the case with the resident. I agree with the resident's findings and plan as documented. SUBJECTIVE: OBJECTIVE: ASSESSMENT AND PLAN:
[2019-06-07 03:14] VITALS: BMI 24.4
[2019-06-07] MEDS ORDERED: LEVOTHYROXINE NA 50 MCG TABLET (FP) PO SCH ×2 (07:00→21:00)
[2019-06-07] MEDS ORDERED: LOSARTAN POTASSIUM 50 MG TABLET (FP) PO SCH ×2 (10:00→22:00)
--- NOTE | 2019-06-07 11:13 | DS ---
Physical Exam: SUBJECTIVE: Patient seen and examined. feeling much better today. states she slept well overnight. tolerated breakfast. denies Cp, SOB, fever, chills, N/V/C/ D, palpitations OBJECTIVE: Vital Signs Period Temp Pulse Resp BP Sys/Perez Pulse Ox Last 24 Hr 97.9 F-98.7 F 63-78 18-18 102-174/72-98 96-99 PHYSICAL EXAM GENERAL: The patient is awake, alert, and fully oriented, in no acute distress. HEAD: Normal with no signs of trauma. EYES: PERRL, extraocular movements intact, sclera anicteric, conjunctiva clear. ENT: Ears normal, nares patent, oropharynx clear without exudates, moist mucous membranes. NECK: Trachea midline, full range of motion, supple. LUNGS: Breath sounds equal, clear to auscultation bilaterally, no wheezes, no crackles, no accessory muscle use. HEART: Regular rate and rhythm, S1, S2 without murmur, rub or gallop. ABDOMEN: Soft, nontender, nondistended, normoactive bowel sounds, no guarding, no rebound, no hepatosplenomegaly, no masses. EXTREMITIES: 2+ pulses, warm, well-perfused, no edema. NEUROLOGICAL: Cranial nerves II through XII grossly intact. Normal speech, gait not observed. PSYCH: Normal mood, normal affect. SKIN: Warm, dry, normal turgor, no rashes or lesions noted. LABS Laboratory Results - last 24 hr 06/06/19 06/06/19 06/06/19 20:00 20:00 20:00 WBC 4.4 RBC 4.47 Hgb 13.0 Hct 38.6 MCV 86.3 MCH 29.1 MCHC 33.7 RDW 16.3 H Plt Count 261 MPV 8.1 Absolute Neuts (auto) 2.6 Neutrophils % 59.0 Lymphocytes % 33.5 D Monocytes % 5.4 Eosinophils % 1.6 D Basophils % 0.5 Nucleated RBC % 0 Sodium 141 Potassium 3.8 Chloride 108 H Carbon Dioxide 27 Anion Gap 6 L BUN 10.0 Creatinine 0.7 Est GFR (CKD-EPI)AfAm 117.09 Est GFR (CKD-EPI)NonAf 101.02 Random Glucose 99 Calcium 9.4 Total Bilirubin 0.3 AST 17 ALT 38 Alkaline Phosphatase 133 H Creatine Kinase 69 Troponin I < 0.02 Total Protein 7.5 Albumin 4.3 Lipase 119 TSH Free T4 06/06/19 06/07/19 20:20 01:44 WBC RBC Hgb Hct MCV MCH MCHC RDW Plt Count MPV Absolute Neuts (auto) Neutrophils % Lymphocytes % Monocytes % Eosinophils % Basophils % Nucleated RBC % Sodium Potassium Chloride Carbon Dioxide Anion Gap BUN Creatinine Est GFR (CKD-EPI)AfAm Est GFR (CKD-EPI)NonAf Random Glucose Calcium Total Bilirubin AST ALT Alkaline Phosphatase Creatine Kinase Troponin I Total Protein Albumin Lipase TSH 51.80 H 71.80 H Free T4 0.43 L HOSPITAL COURSE: Date of Admission:06/06/19 Date of Discharge: 06/07/19 Admitting diagnosis Fatigue Pre hospital course 48 y.o. F w. PMH hypertension, hyperthyroidism ([place]) s/p radioactive iodine therapy (March 2019), now hypothyroid on synthroid (started June 02 2019). Patient c/o nausea and fatigue since leaving the ED yesterday when she had come in for symptoms of palpitations and HTN noticed at home when pt found her BP to be 200/110 which has since resolved. She also endorses cold intolerance, weight loss of undetermined amount over the last few months, decreased appetite and a mild headache. Patient denies chest pain, shortness of breath, difficulty swallowing, muscle pains and fevers. Subsequent hosptial cours observed in the hospital due to symptoms which improved. reported ER staff spoke with [facility] psychiatrist yesterday who increased LT4 dose to 50mcg. this will take weeks to take effect. TSH is not going to improve for several weeks due to long half life of synthroid. can d/c home with follow up with PMD and endo. one elevated reading of BP but other than that has low BP. would not want to adjust at this time as has low BP at this time. was recently instructed to take extra dose of losartan by PMD when high. will need close monitoring by PMD Minutes to complete discharge: 40 Discharge Summary Reason For Visit: DIZZINESS WEAKNESS Current Active Problems HTN (hypertension) (Acute) Weakness (Acute) Condition: Improved - Instructions Diet, Activity, Other Instructions: You came to the hospital because you were feeling weak. this is likely due to your recent thyroid ablation. You were started on new medications for your thyroid but this will take several weeks to start working. Follow up with your endorcinologist on Sunday. Your blood pressure was also noted to be elevated. This morning your blood pressure was low. If recommended by your primary care doctor to take half your blood pressure medication in the morning and half the evening. Would not recommend taking a full 100mg at one time unless further instructed by your primary care doctor to do so Follow with your correctional facility psychiatrist on sunday. Follow up with your primary care doctor next week to monitor your blood pressure Please return to the ER if you develop chest pain. Referrals: Erasto Medina MD [Staff Physician] - Steven Rendon MD [Primary Care Provider] - Disposition: HOME - Home Medications Comprehensive Discharge Medication List: Ambulatory Orders Losartan Potassium 50 mg PO DAILY 03/22/19 Levothyroxine [Synthroid -] 50 mcg PO DAILY 06/05/19 This patient is new to me today: Yes Date on this admission: 06/07/19 Emergency Visit: Yes ED Registration Date: 06/06/19 Care time: The patient presented to the Emergency Department on the above date and was hospitalized for further evaluation of their emergent condition. Critical Care patient: No - Discharge Referral Referred to [facility] Med P.C.: No
--- NOTE | 2019-06-07 11:50 | CONSULT ---
Consult Consult Specialty:: endocrine Referred by:: nicholas Reason for Consultation:: hypothyroidism - History of Present Illness Chief Complaint: high blood pressure History of Present Illness: 48 yo F with h/o Graves disease ( s/p thyroid ablation 04/13), now hypothyroid, who p/w nervousness, weakness, and lightheadedness. Patient seen in ED 06/05/19 for similar complaint of heart racing, high blood pressure, lightheadedness, .for past week has felt increasingly tired,cold,and significant rise in blood pressure,which was noted on prior ed visits.marlen was recently started on synthroid 50mcg 4 days prior.she is compliant with bp and thyroid medication.she denies chest pain,cough fever or chills. - History Source History Provided By: Patient - Past Medical History ...LMP: 02/12/14 ...: No - Alcohol/Substance Use Hx Alcohol Use: No - Smoking History Smoking history: Never smoked Have you smoked in the past 12 months: No Home Medications - Allergies Allergies/Adverse Reactions: Allergies Allergy/AdvReac Type Severity Reaction Status Date / Time No Known Drug Allergies Allergy Verified 06/05/19 19:18 - Home Medications Home Medications: Ambulatory Orders Losartan Potassium 50 mg PO DAILY 03/22/19 Levothyroxine [Synthroid -] 50 mcg PO DAILY 06/05/19 Review of Systems - Review of Systems Constitutional: reports: Weakness Eyes: reports: No Symptoms HENT: reports: No Symptoms Neck: reports: No Symptoms Cardiovascular: reports: No Symptoms Respiratory: reports: No Symptoms Gastrointestinal: reports: No Symptoms Genitourinary: reports: No Symptoms Breasts: reports: No Symptoms Reported Musculoskeletal: reports: No Symptoms Neurological: reports: No Symptoms Endocrine: reports: Unexplained Weight Gain Physical Exam Vital Signs: Vital Signs Temperature 98.7 F 06/07/19 03:15 Pulse Rate 74 06/07/19 06:36 Respiratory Rate 18 06/07/19 03:15 Blood Pressure 107/74 06/07/19 06:36 O2 Sat by Pulse Oximetry (%) 98 06/07/19 02:20 Constitutional: Yes: Calm Eyes: Yes: EOM Intact HENT: Yes: Normocephalic Neck: Yes: Trachea Midline Cardiovascular: Yes: Regular Rate and Rhythm Respiratory: Yes: CTA Bilaterally Gastrointestinal: Yes: Normal Bowel Sounds ...Rectal Exam: Yes: Deferred Renal/: Yes: WNL Musculoskeletal: Yes: WNL Extremities: Yes: WNL Edema: No Neurological: Yes: Alert, Oriented Labs: CBC, BMP 06/06/19 20:00 06/06/19 20:00 Problem List - Problems (1) HTN (hypertension) Code(s): I10 - ESSENTIAL (PRIMARY) HYPERTENSION (2) Dizziness Code(s): R42 - DIZZINESS AND GIDDINESS (3) Hypothyroid Code(s): E03.9 - HYPOTHYROIDISM, UNSPECIFIED Qualifiers: Hypothyroidism type: unspecified Qualified Code(s): E03.9 - Hypothyroidism , unspecified Assessment/Plan Current Active Problems hypothyroidism sp i131 therapy dose HTN (hypertension) (Acute) Weakness (Acute) Abnormal Lab Results 06/06/19 06/06/19 06/06/19 20:00 20:00 20:20 RDW 16.3 H Chloride 108 H Anion Gap 6 L Alkaline Phosphatase 133 H TSH 51.80 H Free T4 0.43 L 06/07/19 01:44 RDW Chloride Anion Gap Alkaline Phosphatase TSH 71.80 H Free T4 plan: synthroid 50mcg bid better tolerated losartan 50 mg bid follow up outpatient
[2019-06-07 15:31] VITALS: BP 138/84; PULSE 68; TEMP 98.6
--- NOTE | 2019-06-07 16:08 | EKG ---
Test Reason : Blood Pressure : / mmHG Vent. Rate : 076 BPM Atrial Rate : 076 BPM P-R Int : 150 ms QRS Dur : 084 ms QT Int : 388 ms P-R-T Axes : 034 014 013 degrees QTc Int : 436 ms NORMAL SINUS RHYTHM NORMAL ECG WHEN COMPARED WITH ECG OF 06-JUN-2019 12:20, NO SIGNIFICANT CHANGE WAS FOUND Confirmed by AGA HARRIS MD ([id number]) on 06/07/2019 4:08:14 PM Referred By: Confirmed By:AGA HARRIS MD
== END 2019-06-07 18:00 | disposition home or self-care (01) | DRG 424 ==
LOC: JER 18:34 → JERBED 23:15 → J7W 06-07 02:45
PROVIDERS: ADMIT Internal Medicine; ATTEND Internal Medicine
DX: E03.8 Other specified hypothyroidism (principal); I10 Essential (primary) hypertension; R42 Dizziness and giddiness; E78.5 Hyperlipidemia, unspecified; F41.9 Anxiety disorder, unspecified
CPT/HCPCS: 36415; 80053; 82550; 83690; 84439; 84443; 84484; 85025; 93005; 93010; 99282-25